=== PATIENT | female | born 1950 | race Caucasian/White ===

== ENCOUNTER → 2022-03-30 10:20 | Outpatient (CLI) | payer MEDICARE, OTHER, MEDICAID, SELFPAY ==
[2022-03-30 12:11] LABS: Potassium 4.3 mmoL/L (3.5-5.1); Sodium 139 mmol/L (136-145)
[2022-03-30 12:12] LABS: Chloride 101 mmol/L (98-107)
[2022-03-30 12:13] LABS: Alanine Aminotransferase 12 U/L (12-78); Aspartate Amino Transferase 31 U/L (14-36); Blood Urea Nitrogen 10 mg/dl (7-17); Estimated Glomerular Filt Rate 62 ml/min (>60); GFR (African American) 75 ML/MIN (>60)
[2022-03-30 12:14] LABS: Anion Gap 11.3 mEq/L (5-15); Carbon Dioxide 31 mmol/L (22.0-30.0); Glucose 94 mg/dl (74-100); HDL Cholesterol 86 mg/dl (40-60)
[2022-03-30 12:15] LABS: Albumin Level 4.2 g/dl (3.5-5.0); Albumin/Globulin Ratio 1.8 (1.1-1.8); Alkaline Phosphatase 106 U/L (38-126); Chol/HDL Ratio 2.7 (1-3.5); Cholesterol 229 mg/dl (140-200); Globulin 2.3 g/dL (1.3-3.2); Total Protein,Serum 6.5 g/dl (6.3-8.2); Triglycerides 121 mg/dl (30-150); VLDL Cholesterol 24 mg/dL (0-40)
[2022-03-30 12:25] LABS: Direct LDL Cholesterol 104.53 mg/dL (100-129)
[2022-03-30 12:45] LABS: Thyroid Stimulating Hormone 1.55 uIU/mL (0.465-4.68)
== END ==
PROVIDERS: PCP Physician Assistant; Visit Provider Family Medicine
DX: E78.5 Hyperlipidemia, unspecified (principal); F41.8 Other specified anxiety disorders
CPT/HCPCS: 36415; 80053; 80061; 84443

== ENCOUNTER 2022-06-10 12:33 | Emergency (ER) | payer MEDICARE, OTHER, MEDICAID, SELFPAY ==
--- NOTE | 2022-06-10 12:43 | ECG_ITS ---
APPROVED REPORT Exam: Resting ECG HR:65 bpm ECG Measurements Heart Rate 65 AXES NC 139 P 74 QRSd 78 QRS 36 QT 399 T 67 QTc 410 Conclusion SINUS RHYTHM POSSIBLE LEFT ATRIAL ENLARGEMENT [-0.1mV P-WAVE IN V1/V2] BORDERLINE ECG UNCONFIRMED REPORT Electronically signed by : Jorge Miguel MD 06/11/2022 20:21:07
--- NOTE | 2022-06-10 12:47 | HMH.EDGENADL ---
Discharge Plan Disposition Patient Disposition: Home, Self-Care Condition: Good Chief Complaint: Shortness of Breath/Dyspnea Prescriptions Prescriptions: No Action paroxetine HCl 20 mg tablet 20 mg PO DAILY Referrals Follow up/Referrals: Debi Allred PA [Primary Care Provider] - See instructions Activity Restrictions/Add. Instructions Additional Instructions/Restrictions: ADDITIONAL INSTRUCTIONS FOR COVID-19: Rest, drink plenty of fluids. Tylenol or Ibuprofen for fever and/or aches and pains. Monitor your symptoms. IF YOU HAVE AN EMERGENCY WARNING SIGN (INCLUDING TROUBLE BREATHING), SEEK EMERGENCY MEDICAL CARE IMMEDIATELY. COVID-19 Isolation: People with COVID-19 should isolate for 5 days. Then if they are asymptomatic (no symptoms) or their symptoms are resolving (without fever for 24 hours), follow that by 5 days of wearing a mask when around others to minimize the risk of infecting people you encounter. If you test positive for COVID-19 and never develop symptoms, day 0 is the day of your positive viral test (based on the date you were tested) and day 1 is the first full day after your positive test. If you develop symptoms after testing positive, your 5-day isolation period must start over. Day 0 is your first day of symptoms. Day 1 is the first full day after your symptoms developed. What to do: Stay in a separate room from other household members, if possible. Use a separate bathroom, if possible. Avoid contact with other members of the household and pets. Don?t share personal household items, like cups, towels, and utensils. Wear a mask when around other people if able. Clinical Impressions Clinical Impression: COVID-19 virus infection Instructions Patient Instructions: DI for COVID-19 (Suspected or Confirmed ) Discharge ED Provider: Antoine Hollis General Adult HPI General Chief complaint: Shortness of Breath/Dyspnea Stated complaint: SOA Time Seen by Provider: 06/10/22 12:52 History of Present Illness HPI narrative: The patient complains of shortness of breath. She states that she thinks she caught COVID about a week ago. Her was diagnosed as positive. She has not taken a test herself, but says that she has had flulike symptoms for a week with body aches and a mild cough. She has been short of breath predominantly with exertion. Denies chest pain. She has had some diarrhea, but no vomiting. No fever. She is a former smoker. She does not have COPD or asthma. Related Data Home Medications Medication Instructions Recorded Confirmed paroxetine HCl 20 mg tablet 20 mg PO DAILY Anxiety 06/10/22 06/10/22 Allergies Allergy/AdvReac Type Severity Reaction Status Date / Time No Known Allergies Allergy Verified 06/10/22 12:53 [facility] Disclaimer: The information contained in this section may have been updated after the patient was seen, as this information can be updated by other users. Social History Smoking Status: Former smoker alcohol intake: current current occupational status: retired Travel in the last 8 weeks: None household members: spouse housing: house ROS Obtained: Yes Systems reviewed as appropriate & no additional complaints except as documented Constitutional Constitutional: Reports body ache, Denies fever(s), Denies headache(s) and Denies weakness ENT Ears, Nose, Mouth, and Throat: Denies headache(s), Denies nasal discharge and Denies sore throat Cardiovascular Cardiovascular: Denies chest pain Respiratory Respiratory: Reports shortness of breath and Reports cough Gastrointestinal Gastrointestingal: Reports diarrhea; Denies abdominal pain, constipation or vomiting Genitourinary Female Genitourinary: Denies difficulty voiding, Denies dysuria and Denies flank pain Musculoskeletal Musculoskeletal: Denies numbness Neurologic Neurologic: Denies headache(s), Denies numbness and Denies weakness Physical Exam General Gene
[2022-06-10 12:50] VITALS: BP 136/80; PULSE 78; RESP 20; TEMP 37; O2SAT 96; BMI 17.6
--- NOTE | 2022-06-10 12:57 | XR_ITS ---
FINAL REPORT TECHNIQUE: Chest PA & Lateral CLINICAL HISTORY: shortness of breath FINDINGS: 2 views of the chest were performed. The heart size is normal. The mediastinum is within normal limits. There is left lateral pleural thickening. There is no acute cardiopulmonary process. There are no pleural effusions. There is no pneumothorax. There is rightward curvature of the thoracic spine. There is postoperative change in the left thorax. IMPRESSION: No acute cardiopulmonary process. Reviewed, Interpreted and Dictated by Rosalio Lorenzana III, MD Transcribed by Corwin Vivas Authenticated and . [facility]
[2022-06-10 13:11] LABS: Influenza A, PCR Not Detected (NotDetected); Influenza B, PCR Not Detected (NotDetected)
[2022-06-10 13:17] LABS: Basophils # 0.1 K/mm3 (0-0.2); Basophils % 1.1 % (0.1-2.0); Eosinophils # 0.1 K/mm3 (0.0-0.4); Eosinophils % 1.1 % (0.1-12.0); Hematocrit 45.3 % (37.0-47.0); Hemoglobin 14.8 g/dL (12.2-16.2); Lymphocytes # 1.3 K/mm3 (0.7-4.5); Lymphocytes % 30.3 % (10-50); Mean Corpuscular HGB Conc 32.6 g/dL (31.8-35.4); Mean Corpuscular Hemoglobin 32.9 pg (27.0-31.2); Mean Corpuscular Volume 100.9 fl (81-99); Mean Platelet Volume 8.7 fl (7.4-10.4); Monocytes # 0.3 K/mm3 (0.1-1.0); Monocytes % 5.9 % (1.7-9.3); Neutrophils # 2.6 K/mm3 (1.8-7.8); Neutrophils % 61.5 % (37.0-80.0); Platelet Count 178 K/mm3 (142-424); Red Blood Count 4.49 M/mm3 (4.20-5.40); Red Cell Distribution Width 12.5 % (11.5-17.5); White Blood Count 4.2 K/mm3 (4.8-10.8)
[2022-06-10 13:22] LABS: Alanine Aminotransferase 16 U/L (12-78); Albumin Level 4.3 g/dl (3.5-5.0); Albumin/Globulin Ratio 1.7 (1.1-1.8); Alkaline Phosphatase 112 U/L (38-126); Anion Gap 7.2 mEq/L (5-15); Aspartate Amino Transferase 36 U/L (14-36); Bilirubin,Total 0.7 mg/dl (0.2-1.3); Blood Urea Nitrogen 11 mg/dl (7-17); Calcium 9.3 mg/dl (8.4-10.2); Carbon Dioxide 31 mmol/L (22.0-30.0); Chloride 104 mmol/L (98-107); Creatinine Clearance Estimated 38 mL/min (50-200); Estimated Glomerular Filt Rate 71 ml/min (>60); GFR (African American) 86 ML/MIN (>60); Globulin 2.5 g/dL (1.3-3.2); Glucose 103 mg/dl (74-100); Potassium 4.2 mmoL/L (3.5-5.1); Sodium 138 mmol/L (136-145); Total Protein,Serum 6.8 g/dl (6.3-8.2)
[2022-06-10 13:27] LABS: D-Dimer 0.45 ug/mL (0.0-0.5)
[2022-06-10 13:33] LABS: NT Pro Brain Natriuretic Pep. 250 pg/mL (0-125)
[2022-06-10 13:34] LABS: Coronavirus 19, PCR Detected (NotDetected)
[2022-06-10 13:36] LABS: Troponin I < 0.01 ng/ml (0.00-0.034)
--- NOTE | 2022-06-10 13:39 | PC.NURSE ---
MD at bedside updating patient on test results
[2022-06-10 13:50] VITALS: BP 132/70; PULSE 74; RESP 16; TEMP 36.8; O2SAT 98
== END 2022-06-10 13:55 | disposition home or self-care (01) ==
PROVIDERS: Emergency Provider Emergency Medicine; PCP Physician Assistant
DX: U07.1 COVID-19 (principal); M79.10 Myalgia, unspecified site; R05.9 Cough, unspecified; R19.7 Diarrhea, unspecified; F41.9 Anxiety disorder, unspecified; Z79.899 Other long term (current) drug therapy; Z87.891 Personal history of nicotine dependence
CPT/HCPCS: 71046; 80053; 83880; 84484; 85025; 85378; 93005; 99284; C9803; U0003; U0005

== ENCOUNTER 2025-03-12 13:21 | Outpatient (CLI) | payer MEDICARE, OTHER, SELFPAY ==
--- OUTSIDE RECORDS SUMMARY | 2024-11-02 09:15 | XMS_ITS ---
Author Organization [facility] Address [address] [facility] [address] [place] [phone] Care Team Providers Care Dental Appliance Mechanic Name Role Phone Debi Allred Primary Care Provider Allergies Allergen (clinical drug ingredient) Drug/Non Drug [...] HCl 20 MG Take 1 tablet by [facility] once daily for 90 days Orally Once a day; Duration: 90 days Active Vital Signs Blood pressure systolic 120 mm Hg 11/03/19 25 Blood pressure diastolic 72 mm Hg 025 Heart Rate 86 /min 11/02/2024 Height 5'3 in 11/02/2024 Weight 119.4 lbs 11/02/2024 BMI 21.15 kg/m2 11/02/2024 Encounters Encounter Location Date Provider Diagnosis [facility] [place] [facility] [address] [place] [phone] 11/02/2024 Debi Allred Adult general medica l [...] HCl 20 MG Take 1 tablet by [facility] once daily for 90 days Orally Once [...] Notes * WISAM CUEVASEDOB:1950 (74 yo F)Acc No.[id number]:11/02/2024 Annual Wellness Visit Patient: KENYA STEIN Provider: KAM Key :1950 A ge:73 Y S ex:Female Date:11/02/2024 Address:[address] [place] [address] Subjective: * Chief Complaints: * 1 . [...] Temp: 98.5, BP: 120/72, HR: 86, Nurse: [facility], Ht: 5'3 , BMI:21.15. * Examination: G [...] unspecified hyperlipidemia type - E78.5? 4. B TN 21.0-21.9, adult - Z68.21 Plan: * Treatment: [...] * Images: Billing Information: * Visit Code: 48664 Office Visit, Est Pt., Level 3. Modifiers: [...] * Electronic signature of KAM Lezama on 03/12/2025 at 01:25 PM EDT Sign off status: Pending * Provider: KAM Key Date: 0 11/02/2024 Generated for Joyce ace/Carlito/eTransmitting on: 0 03/12/2025 01:25 PM EDT History and Physical Notes * HPI (History of Present Illness) Category Sub-Category Detail Notes Category Not es HPI Patient is here today for a [facility] k up with refills , a [...]
--- OUTSIDE RECORDS SUMMARY | 2024-11-07 07:45 | XMS_ITS ---
Author [facility] Address 1210 [facility] [address] [phone] Care Team Providers Care Pediatric Assistant Name Role Phone Debi Allred Primary Care Provider Results Component Value Reference Range Notes CBC Venipuncture (in house) Reviewed date:12/14/2024 09:54:47 AM Interpretation:not performed- redraw? Performing Lab: Notes/Report: not performed- redraw? P-Comprehensive Metabolic Pa edison (CMP) Reviewed date:11/15/2024 03:13:50 PM Interpretation: Normal Performing Lab: Notes/Report: Test performed by [facility], [address] , [address], [place] [address] Wojciech Mueller MD, Studio Receptionist CLIA: [id number] Sodium 143 135-145 mmol/L Potassium 3.9 3.5-5.3 [...] Performing Lab: Notes/Report: FASTING Test performed by [facility] [address] [place] [address] , [address] , [place] [address] Wojciech Mueller MD, Studio Receptionist CLIA: [id number] Cholesterol 216 <200 mg/dL Triglycerides 114 <150 [...] Normal Performing Lab: Notes/Report: Test performed by [facility] [address] [place] [address] , [address], [place] [address] Wojciech Mueller MD, Studio Receptionist CLIA: [id number] TSH reflex to FT4 2.08 0.43-5.25 mU/L REASON FOR VISIT LAB DRAW Encounters Encounter Location Date Provider Diagnosis [facility] [address] [place], [place] [phone] 11/07/2024 Debi Allred Anxiety with depress ion F41.8 and Hyperlipidemia, unspecified hyperlipidemia type E78.5 Assessments Encounter Date Diagnosis (ICD Code) Assessment Notes Treatment Notes Treatment Clinical Notes Section Notes 11/07/2024 Anxiety with depression (ICD-10 - F41.8) 11/07/2024 Hyperlipidemia, unspecified hyperlipidemia type (ICD-10 - E78.5) Plan Of Treatment No Information Progress Notes * WISAM CUEVASEDOB:1950 (74 yo F)Acc No.[id number]:11/07/2024 Patient: KENYA STEIN Provider: KAM Key :1950 A ge:73 Y S ex:Female Date:11/07/2024 Address:[address] [place] [address] Subjective: * Chief Complaints: * 1 . [...] to FT4 2.08 0.43-5.25 - mU/L * Rea Tavarez 11/15/2024 03: 13:41 PM > See [...] 0 11/07/2024 Generated for Bryanti ng/Facheg/eTransmitting on: 0 03/12/2025 01:25 PM EDT
--- OUTSIDE RECORDS SUMMARY | 2025-02-28 10:00 | XMS_ITS ---
Author Organization [place] Address 1210 [facility] [address] [place] [phone] Care Team Providers Care Plasterer Helper Name Role Phone Debi Allred Primary Care Provider Allergies Allergen (clinical drug ingredient) Drug/Non Drug Allergy documented on EMR Reaction Allergy Type Onset Date Status Shellfish (FN) Shellfish-derived Products stomach upset Drug Allergy Active REASON FOR VISIT check up Medications Medication SIG (Take, Route, Fr equency, Duration) Notes Start Date End Date Status PARoxetine HCl 20 MG Take 1 tablet by [facility] once daily for 90 days Orally Once a day; Duration: 90 days Active Vital Signs Blood pressure systolic 118 mm Hg 02/29/20 25 Blood pressure diastolic 70 mm Hg 025 Heart Rate 74 /min 02/28/2025 Height 5'3 in 02/28/2025 Weight 117.6 lbs 02/28/2025 BMI 20.83 kg/m2 02/28/2025 Encounters Encounter Location Date Provider Diagnosis [facility] [facility] [address] [place] [phone] 02/28/2025 Debi Allred Mass of axillary flavio [...] adult (ICD-10 - Z68.20) Plan Of Treatment Pending Test Test Name Order Date CT Scan : Chest with IV contrast 025 Next Appt Details Follow Up: via phone to repo rt test results, Reason: Progress Notes * WISAM CUEVASEDOB:1950 (74 yo F)Acc No.[id number]:02/28/2025 Progress Notes Patient: KENYA STEIN Provider: KAM Key :1950 A ge:74 Y S ex:Female Date:02/28/2025 Address:[address] [place] [address] Subjective: * Chief Complaints: * 1 . [...] with depression - F41.8 3 . B [place] 20.0-20.9, adult - Z68.20 Plan: * Treatment: [...] to report test results * Images: Drawin02/28/25 [facility] Billing Information: * Visit Code: 18706 Office Visit, Est Pt., Level 3. * Procedure Codes: G2211 Complex e/m visit add on. 1036F TOBACCO NON-USER. G8420 BMI<30 AND >=22 CALC & DOCU. G8783 BP SCR PRFRM RCMDD DEFIND SCR INTVL. G8752 MOST RECENT SYSTOLIC BP < 140MM HG. G8754 MOST RECENT DIASTOLIC BP < 90MM HG. * Electronic signature of KAM Lezama on 03/12/2025 at 01:26 PM EDT Sign off status: Pending * Provider: KAM Key Date: 02/28/2025 Generated for Joyce ace/Carlito/Jerryitting on: 0 03/12/2025 01:26 PM EDT History and Physical Notes * [...]
--- NOTE | 2025-03-12 13:23 | CT_ITS ---
FINAL REPORT TECHNIQUE: Thin section axial images were obtained from the thoracic inlet through the upper abdomen after intravenous contrast injection. Reconstruction images were obtained from the axial data. Exam was performed using dose reduction technique. CLINICAL HISTORY: MASS OF AXILLARY TAIL LT BREAST FINDINGS: Surgical clips are seen in the left axilla, presumably from axillary lymph node dissection. There are surgical changes to the left breast. Soft tissue mass is identified measuring 30 mm within the lateral left breast, current breast cancer is a concern. There is a mildly enlarged right axillary lymph node measuring 13 mm. There is no mediastinal or hilar lymphadenopathy. There is no pleural or pericardial effusion. There is a large hiatal hernia. Changes of emphysema is noted. There is a subpleural, somewhat spiculated opacity in the left upper lobe slightly nodular deep to the breast abnormality measuring 25 x 11 mm. While this could be related to radiation to the left breast, metastatic disease is not excluded. Limited evaluation of the upper abdomen is without acute abnormality. There are several thoracic compression deformities which are age-indeterminate including T2, T3, T8, and T9. There is also an inferior endplate L1 compression fracture. IMPRESSION: Mass in the lower left breast with other findings suggestive of prior surgery from left axillary lymph node dissection, recurrent or residual neoplasm a concern. Indeterminant right axillary lymph node. PET/CT is recommended if breast cancer is confirmed. Subpleural spiculated opacity in the left upper lobe which could be related to radiation or neoplasm. This is also better evaluated with PET scan. Reviewed, Interpreted and Dictated by Elva Bronson MD Transcribed by Paulette Ying Authenticated and [facility]
--- OUTSIDE RECORDS SUMMARY | 2025-03-12 13:26 | XMS_ITS | Patient Health Record ---
Author Organization [facility] Address [address] [facility] 36 [facility] [address] [place] [phone] Care Team Providers Care Esol Teacher Assistant Name Role Phone Debi Allred Primary Care Provider Allergies Allergen (clinical drug ingredient) Drug/Non Drug Allergy documented on EMR Reaction Allergy Type Onset Date Status Shellfish (FN) Shellfish-derived Products stomach upset Drug Allergy Active Results Component Value Reference Range Notes CBC Venipuncture (in house) Reviewed date:12/14/2024 09:54:47 AM Interpretation:not performed- redraw? Performing Lab: Notes/Report: not performed- redraw? P-Comprehensive Metabolic Pa edison (CMP) Reviewed date:11/15/2024 03:13:50 PM Interpretation: Normal Performing Lab: Notes/Report: Test performed by [facility], [facility] , [address], [place] [address] Wojciech Mueller MD, Water Resource Engineer CLIA: [id number] Sodium 143 135-145 mmol/L Potassium 3.9 3.5-5.3 [...] Performing Lab: Notes/Report: FASTING Test performed by [facility], [address] , [facility], [place] [address] Wojciech Mueller MD, Water Resource Engineer CLIA: [id number] Cholesterol 216 <200 mg/dL Triglycerides 114 <150 [...] Normal Performing Lab: Notes/Report: Test performed by [facility], [facility] [address] [place] [address] , [address], [place] [address] Wojciech Mueller MD, Water Resource Engineer CLIA: [id number] TSH reflex to FT4 2.08 0.43-5.25 mU/L Reason For Referral No Information Medications Medication SIG (Take, Route, Fr equency, Duration) Notes Start Date End Date Status PARoxetine HCl 20 MG Take 1 tablet by [facility] once daily for 90 days Orally Once a day; Duration: 90 days Active Immunizations Vaccine Route Administration Date Status Comme nts COVID 19 Eloisa IM Intramuscular 08/29/2020 Administered Problems Problem Type SNOMED Code ICD Code Onset Dates Problem Status W/U Status Risk Notes Problem Hyperlipidaemia (28419061) Hyperlipidemia, unspecified hyperlipidemia type (E78.5) Active confirmed Problem Anxiety depression (065401170) Anxiety with depression (F41.8) Active confirmed Vital Signs Heart Rate 74 /min 02/28/2025 Blood pressure diastolic 70 mm Hg 02/28/2025 Height 5'3 in 02/28/2025 Blood pressure systolic 118 mm Hg 02/28/2025 Weight 117.6 lbs 02/28/2025 BMI 20.83 kg/m2 02/28/2025 Encounters Encounter Location Date Provider Diagnosis [facility] [address] [id number] 11/02/2024 Debi Allred Adult general medica l examination Z00.00 ; Anxiety with depression F41.8 ; Hyperlipidemia, unspecified hyperlipidemia type E78.5 and BMI 21.0-21.9, adult Z68.21 [facility] [address] [id number] 11/07/2024 Debi Allred Anxiety with depress ion F41.8 and Hyperlipidemia, unspecified hyperlipidemia type E78.5 [place] [address] [id number] 02/28/2025 Debi Allred Mass of axillary flavio l of left breast N63.32 ; Anxiety with depression F41.8 and BMI 20.0-20.9, adult Z68.20 [facility] [address] [place] [id number] 03/05/2025 Debi Allred [facility] [address] [place] [id number] 06/07/2024 Debi Allred [facility] [address] [place] [id number] 11/15/2024 Debi Allred Assessments Encounter Date Diagnosis (ICD Code) Assessment [...] 11/02/2024 Anxiety with depression (ICD-10 - F41.8) 11/07/2024 Hyperlipidemia, unspecified hyperlipidemia type (ICD-10 - E78.5) 11/07/2024 Anxiety with depression (ICD-10 - F41.8) 02/28/2025 Anxiety with depression (ICD-10 - F41.8) 02/28/2025 Mass of axillary tail of left breast (ICD-10 - N63.32) 02/28/2025 BMI 20.0-20.9, adult (ICD-10 - Z68.20) 11/02/2024 Hyperlipidemia, unspecified hyperlipidemia type (ICD-10 - E78.5) Patient will come back tomorrow fasting for labs CBC, CMP, Lipid, TSH with refled to Free T4. 11/02/2024 BMI 21.0-21.9, adult (ICD-10 - Z68.21) Plan Of Treatment Pending Test Test Name Order Date CT Scan : Chest with IV contrast 025 Insurance Providers Payer Name Payer Address Payer Phone Subscriber Number Group Number Insured Name Patient Relationship to Insured Coverage Start Date Coverage End Date MEDICARE PART B [address] [address] [place] [address] [phone] [id number] KENYA CUEVAS Self - patient is the insured [facility] MEDICARE SUPPLEMENT [address] [address] [place], [place] [phone] [id number] KENYA CUEVAS Self - patient is the insured Medical (General) History Medical History History ICD Code Breast Cancer Anixety Surgical History Surgery Date(Month/Year) Lumpectomy left breast with lymph node r emoval 1990
[2025-03-12 13:45] LABS: Blood Urea Nitrogen 9 mg/dl (7-17); Creatinine,Serum 0.90 mg/dl (0.52-1.04); Estimated Glomerular Filt Rate 62 ml/min (>60); GFR (African American) 74 ML/MIN (>60)
[2025-03-12] MEDS: SODIUM CHLORIDE 0.9% 10ML SYR (RAD ONLY) 10 ML IV (14:13)
[2025-03-12] MEDS: IOPAMIDOL-370 (76%);100ML BOTTLE 75 ML IV (14:13)
== END 2025-03-12 23:59 | disposition home or self-care (01) ==
LOC: RAD 13:22
PROVIDERS: PCP Physician Assistant; Visit Provider Physician Assistant
DX: N63.20 Unspecified lump in the left breast, unspecified quadrant (principal); N63.32 Unspecified lump in axillary tail of the left breast; R91.8 Other nonspecific abnormal finding of lung field; R93.89 Abnormal findings on diagnostic imaging of other specified body structures
CPT/HCPCS: 36415; 71260; 82565; 84520; Q9967

== ENCOUNTER 2025-04-16 14:38 | Outpatient (CLI) | payer MEDICARE, OTHER, SELFPAY ==
--- OUTSIDE RECORDS SUMMARY | 2024-11-02 09:15 | XMS_ITS ---
Author Organization [facility] Address [address] [facility] [address] [place] [phone] Care Team Providers Care Harvester Operator Name Role Phone Debi Allred Primary Care Provider [phone] Allergies Allergen (clinical drug ingredient) Drug/Non Drug [...] MG Take 1 tablet by [facility] once daily for 90 days Orally Once a day; Duration: 90 days Active Vital Signs Blood pressure systolic 120 mm Hg 11/03/19 25 Blood pressure diastolic 72 mm Hg 025 Heart Rate 86 /min 11/02/2024 Height 5'3 in 11/02/2024 Weight 119.4 lbs 11/02/2024 BMI 21.15 kg/m2 11/02/2024 Encounters Encounter Location Date Provider Diagnosis [facility] [place] [facility] [address] [place] [phone] 11/02/2024 Debi Allred Adult general medica l [...] MG Take 1 tablet by [facility] once daily for 90 days Orally Once [...] Notes * WISAM CUEVASEDOB:1950 (74 yo F)Acc No.[id number]:11/02/2024 Annual Wellness Visit Patient: KENYA STEIN Provider: KAM Key :1950 A ge:73 Y S ex:Female Date:11/02/2024 Address:[address] [place] [address] Subjective: * Chief Complaints: * 1 . [...] Temp: 98.5, BP: 120/72, HR: 86, Nurse: [facility], Ht: 5'3 , BMI:21.15. * Examination: [...] * Images: Billing Information: * Visit Code: 77183 Office Visit, Est Pt., Level 3. Modifiers: [...] * Electronic signature of KAM Lezama on 04/16/2025 at 03:34 PM EDT Sign off status: Pending * Provider: KAM Key Date: 0 11/02/2024 Generated for Joyce ace/Carlito/eTransmitting on: 1 03:34 PM EDT History and Physical Notes * HPI (History of Present Illness) Category Sub-Category Detail Notes Category Not es HPI Patient is here today for a [facility] k up with refills , a Medicare [...]
--- OUTSIDE RECORDS SUMMARY | 2024-11-07 07:45 | XMS_ITS ---
Author Organization [facility] Address 1210 [facility] [address] [phone] Care Team Providers Care Oil Pipeline Dispatcher Name Role Phone Debi Allred Primary Care Provider [phone] Results Component Value Reference Range Notes CBC Venipuncture (in house) Reviewed date:12/14/2024 09:54:47 AM Interpretation:not performed- redraw? Performing Lab: Notes/Report: not performed- redraw? P-Comprehensive Metabolic Pa edison (CMP) Reviewed date:11/15/2024 03:13:50 PM Interpretation: Normal Performing Lab: Notes/Report: Test performed by [facility], [address] , [address], [place] [address] Wojciech Mueller MD, Driver Helper CLIA: [id number] Sodium 143 135-145 mmol/L Potassium 3.9 3.5-5.3 [...] Performing Lab: Notes/Report: FASTING Test performed by [facility] [address] [place] [address] , [address] , [place] [address] Wojciech Mueller MD, Driver Helper CLIA: [id number] Cholesterol 216 <200 mg/dL Triglycerides 114 <150 [...] Normal Performing Lab: Notes/Report: Test performed by [facility] [address] [place] [address] , [address], [place] [address] Wojciech Mueller MD, Driver Helper CLIA: [id number] TSH reflex to FT4 2.08 0.43-5.25 mU/L REASON FOR VISIT LAB DRAW Encounters Encounter Location Date Provider Diagnosis [facility] [address] [place], [place] [id number] 11/07/2024 Debi Allred Anxiety with depress ion F41.8 and Hyperlipidemia, unspecified hyperlipidemia type E78.5 Assessments Encounter Date Diagnosis (ICD Code) Assessment Notes Treatment Notes Treatment Clinical Notes Section Notes 11/07/2024 Anxiety with depression (ICD-10 - F41.8) 11/07/2024 Hyperlipidemia, unspecified hyperlipidemia type (ICD-10 - E78.5) Plan Of Treatment No Information Progress Notes * WISAM CUEVASEDOB:1950 (74 yo F)Acc No.[id number]:11/07/2024 Patient: KENYA STEIN Provider: KAM Key :1950 A ge:73 Y S ex:Female Date:11/07/2024 Address:[address] [place] [address] Subjective: * Chief Complaints: * 1 . [...] sure what happened with could not find Debi Anderson 12/14/2024 09:54:42 AM EDT >noted * Images: Billing Information: * Visit Code: * Procedure Codes: * Electronic signature of KAM Lezama on 04/16/2025 at 03:34 PM EDT Sign off status: Pending * Provider: KAM Key Date: 0 11/07/2024 Generated for Bryanti ng/Facheg/eTransmitting on: 1 03:34 PM EDT
--- OUTSIDE RECORDS SUMMARY | 2025-02-28 10:00 | XMS_ITS ---
Author Organization [place] Address [address] [facility] [address] [place] [id number] Care Team Providers Care Piercing Machine Operator Name Role Phone Debi Allred Primary [...] HCl 20 MG Take 1 tablet by [facility] once daily for 90 days Orally Once a day; Duration: 90 days Active Vital Signs Blood pressure systolic 118 mm Hg 02/29/20 25 Blood pressure diastolic 70 mm Hg 025 Heart Rate 74 /min 02/28/2025 Height 5'3 in 02/28/2025 Weight 117.6 lbs 02/28/2025 BMI 20.83 kg/m2 02/28/2025 Encounters Encounter Location Date Provider Diagnosis [facility] [address] [place] [phone] 02/28/2025 Debi Allred Mass of axillary flavio [...] Notes * WISAM CUEVASEDOB:1950 (74 yo F)Acc No.[id number]:02/28/2025 Progress Notes Patient: KENYA STEIN Provider: KAM Key :1950 A ge:74 Y S ex:Female Date:02/28/2025 Address:[address] [place] [address] Subjective: * Chief Complaints: * 1 . [...] with depression - F41.8 3 . B [place] 20.0-20.9, adult - Z68.20 Plan: * Treatment: [...] to report test results * Images: Drawin02/28/25 [facility] Billing Information: * Visit Code: 18157 Office Visit, Est Pt., Level 3. * Procedure Codes: G2211 Complex e/m visit add on. 1036F TOBACCO NON-USER. G8420 BMI<30 AND >=22 CALC & DOCU. G8783 BP SCR PRFRM RCMDD DEFIND SCR INTVL. G8752 MOST RECENT SYSTOLIC BP < 140MM HG. G8754 MOST RECENT DIASTOLIC BP < 90MM HG. * Electronic signature of KAM Lezama on 04/16/2025 at 03:35 PM EDT Sign off status: Pending * Provider: KAM Key Date: 0 02/28/2025 Generated for Joyce ace/Carlito/eTransmitting on: 1 03:35 PM EDT History and Physical Notes * [...]
--- OUTSIDE RECORDS SUMMARY | 2025-03-29 07:40 | XMS_ITS ---
Author Organization Joelle Address 1210 [facility] 36 [facility] [address] [place], [place] [id number] Care Team Providers Care Cash Accountant Name Role Phone Debi Allred Primary Care Provider REASON FOR VISIT order clarification Encounters Encounter Location Date Provider Diagnosis [facility] 36 [facility] [address] [place] [id number] 03/29/[address] CT R9 3.89 and Mass of left breast, unspecified quadrant N63.20 Assessments Encounter Date Diagnosis (ICD Code) Assessment Notes Treatment Notes Treatment Clinical Notes Section Notes 03/29/[address] (ICD-10 - R93.89) 03/29/2025 Mass of left breast, unspecified quadrant (ICD-10 - N63.20) Plan Of Treatment Pending Test Test Name Order Date Ultrasound : Breast, left 03/29/2025 Mammogram : Diagnostic Left Breast 03/29 Progress Notes * WISAM CUEVASEDOB:1950 (74 yo F)Acc No.[id number]:03/29/2025 Patient: KENYA STEIN :1950 A ge:74 Y S ex:Female Address:[address] [place] [address], [id number] Subjective: * Chief Complaints: * O rder clarification * Medical History: * Surgical History: * Hospitalization/Major Diagno stic Procedure: * Medications: Objective: * Vitals: * Physical Examination: Assessment: * Assessment: 1. A bnormal chest CT - R93.89 (Primary) 2 . M ass of left breast, unspecified quadrant - N63.20 Plan: * Treatment: 2. M ass of left breast, unspecified quadrant I maging: Ultrasound : Breast, left I maging: Mammogram : Diagnostic Left Breast * Procedure Codes: * true * Date: Generated for Joyce ace/Carlito/Jerryitting on: 03:34 PM EDT
--- NOTE | 2025-04-16 14:41 | US_ITS ---
PROCEDURE INFORMATION: Exam: US Left Breast, Complete MG Left Diagnostic Breast Tomosynthesis Exam date and time: 04/16/2025 2:47 PM Age: 74 years old Clinical indication: History of left breast pain and lump. Personal history of left breast cancer, status post lumpectomy and radiation in the early 90s. TECHNIQUE: Imaging protocol: Complete ultrasound of all four quadrants of the left breast and the retroareolar regions, including ultrasound of the axilla when performed. Left Diagnostic tomosynthesis and 2D mammography including computer-aided detection (CAD) when performed. Unilateral or bilateral exam. COMPARISON: Mammogram 04/09/2015, 07/30/2003, and 07/25/2002 FINDINGS: MAMMOGRAPHY: Breast mammogram findings: Neither the location of the palpable lump nor pain are annotated with a skin marker on the mammogram. Breast composition: There are scattered areas of fibroglandular density. Mass: New oval 2.8 cm mass/circumscribed asymmetry in the upper left breast posterior 3rd, about 9-13 cm from the nipple, MLO view only. Architectural distortion: Similar postsurgical architectural distortion and deformity status post lumpectomy. Calcifications: No suspicious calcifications. Asymmetric density: None. Skin thickening: None. Axillary adenopathy: None. ULTRASOUND: Breast ultrasound findings: Ultrasound images of left breast including the retroareolar region, all 4 quadrants and the axilla demonstrates at 2 o'clock 8 cm from the nipple, corresponding to the palpable mass as indicated in the technologist notes, heterogeneous slightly lobulated very hyperemic mass, which is superficial, abutting the overlying echogenic skin layer, measuring 2.0 x 2.6 x 2.3 cm which appears to correspond to the mammographic mass. Postlumpectomy scarring noted at 11 o'clock. No axillary adenopathy demonstrated. IMPRESSION: Suspicious solid hyperemic 2.6 cm mass on the left at 2 o'clock 8 cm from the nipple, corresponding to the palpable mass as indicated in the technologists sonography notes, demonstrated on mammography as well. This abuts the overlying skin layer on sonography. Recommend ultrasound-guided biopsy correlation to ensure that sonographically placed clip corresponds to mammographic mass. Recommend adding right sonography as well, last submitted bilateral mammograms from 2014. In women diagnosed with breast cancer before age 50 or with personal histories of breast cancer and dense breasts, the [employer] recommends annual supplemental MRI in addition to yearly mammography. Alternative supplemental studies may include breast sonography or contrast enhanced mammography. ASSESSMENT: BI-RADS Category 5: Highly suggestive of malignancy.
--- OUTSIDE RECORDS SUMMARY | 2025-04-16 15:35 | XMS_ITS ---
Author Organization Unknown TREATMENT PLAN [facility] Start Date Provider Encounter for Check-up [id number] [facility]
--- OUTSIDE RECORDS SUMMARY | 2025-04-16 15:35 | XMS_ITS | Patient Health Record ---
Author Organization [facility]-Kateryna Address 1210 [facility] 36 [facility] [address] [place] [phone] Care Team Providers Care Research Professor Of Biostatistics Name Role Phone Debi Allred Primary Care [...] Normal Performing Lab: Notes/Report: Test performed by [facility], [facility] , [address], [place] [address] Wojciech Mueller MD, Reconcilement Clerk CLIA: [id number] Sodium 143 135-145 mmol/L Potassium 3.9 3.5-5.3 [...] Performing Lab: Notes/Report: FASTING Test performed by [employer], [address] , [facility], [place] [address] Wojciech Mueller MD, Reconcilement Clerk CLIA: [id number] Cholesterol 216 <200 mg/dL Triglycerides 114 <150 [...] Normal Performing Lab: Notes/Report: Test performed by [facility] [address] [place] [address] , [address], [place] [address] Wojciech Mueller MD, Reconcilement Clerk CLIA: [id number] TSH reflex to FT4 2.08 0.43-5.25 mU/L CT Scan : Chest with IV cont rast Reviewed date:03/16/2025 11:30:42 AM Interpretation: Performing Lab: Notes/Report: H-BUN/CREAT Reviewed date:03/16/2025 11:30:43 AM Interpretation:Normal Performing Lab: Notes/Report: BUN 9 7-17 mg/dl CREATT 0.90 0.52-1.04 mg/dl GFRAA 74 >60 ML/MIN EGFR 62 >60 ml/min Ultrasound : Breast, left Reviewed date:03/29/2025 11:59:23 AM Interpretation: Performing Lab: Notes/Report: Reason For Referral No Information Medications Medication SIG (Take, Route, Fr equency, Duration) Notes Start Date End Date Status PARoxetine HCl 20 MG Take 1 tablet by [facility] once daily for 90 days Orally Once a day; Duration: 90 days Active Immunizations Vaccine Route Administration Date Status Comme nts COVID 19 Eloisa IM Intramuscular 08/29/2020 Administered Problems Problem Type SNOMED Code ICD Code Onset Dates Problem Status W/U Status Risk Notes Problem Hyperlipidaemia (97197131) Hyperlipidemia, unspecified hyperlipidemia type (E78.5) Active confirmed Problem Anxiety depression (853135871) Anxiety with depression (F41.8) Active confirmed Problem Radiology result abnormal (305700166) Abnormal chest CT (R93.89) Active confirmed Vital Signs Heart Rate 74 /min 02/28/2025 Blood pressure diastolic 70 mm Hg 02/28/2025 Height 5'3 in 02/28/2025 Blood pressure systolic 118 mm Hg 02/28/2025 Weight 117.6 lbs 02/28/2025 BMI 20.83 kg/m2 02/28/2025 Encounters Encounter Location Date Provider Diagnosis [facility] [address] [place], [place] [id number] 11/02/2024 Debi Allred Adult general medica l examination Z00.00 ; Anxiety with depression F41.8 ; Hyperlipidemia, unspecified hyperlipidemia type E78.5 and BMI 21.0-21.9, adult Z68.21 [facility] [address] [place], [place] [id number] 11/07/2024 Debi Brigida Anxiety with depress ion F41.8 and Hyperlipidemia, unspecified hyperlipidemia type E78.5 [facility] [address] [place], [place] [id number] 02/28/2025 Debi Brigdia Mass of axillary flavio l of left breast N63.32 ; Anxiety with depression F41.8 and BMI 20.0-20.9, adult Z68.20 [facility] [address] [place], [place] [id number] 06/07/2024 Debi Crowdy [facility] [address] [facility] [address] [place], [place] [id number] 11/15/2024 Debi Crowdy [facility] [address] [facility] [address] [place], [place] [id number] 03/05/2025 Debi Crowdy [facility] [address] [facility] [address] [place] [id number] 03/16/2025 Debi Crowdy [facility] [address] [facility] [address] [place], [place] [id number] 03/29/2025 Debi Brigida Abnormal chest CT R9 3.89 and Mass of left breast, unspecified quadrant N63.20 Assessments Encounter Date Diagnosis (ICD Code) Assessment Notes Treatment Notes Treatment Clinical Notes Section Notes 11/07/2024 Hyperlipidemia, unspecified hyperlipidemia type (ICD-10 - E78.5) 11/07/2024 Anxiety with depression (ICD-10 - F41.8) 02/28/2025 Anxiety with depression (ICD-10 - F41.8) 02/28/2025 Mass of axillary tail of left breast (ICD-10 - N63.32) 03/29/[address] (ICD-10 - R93.89) 03/29/2025 Mass of left breast, unspecified quadrant (ICD-10 - N63.20) 11/02/2024 Adult general medical examination (ICD-10 - Z00.00) Patient instructed to return to office Annually for Annual Wellness Visits to include annual screenings of Pain assessment, Functional Ability assessment, Cognitive Ability assessment, Fall Risk assessment, Depression screening and Bladder control screening. She declines preventative screening. 11/02/2024 Anxiety with depression (ICD-10 - F41.8) 02/28/2025 [...] 03/29/2025 Mammogram : Diagnostic Left Breast 03/29 Insurance Providers Payer Name Payer Address Payer Phone Subscriber Number Group Number Insured Name Patient Relationship to Insured Coverage Start Date Coverage End Date MEDICARE PART B [address] [address] [place] [address] [id number] KENYA CUEVAS Self - patient is the insured [facility] MEDICARE SUPPLEMENT [address] [address] [place], [place] [id number] KENYA CUEVAS Self - patient is the insured Medical (General) History Medical History History ICD Code Breast Cancer Anixety Surgical History Surgery Date(Month/Year) Lumpectomy left breast with lymph node r emoval 1989
== END 2025-04-16 23:59 | disposition home or self-care (01) ==
LOC: RAD 14:39
PROVIDERS: PCP Physician Assistant; Visit Provider Physician Assistant
DX: N63.21 Unspecified lump in the left breast, upper outer quadrant (principal); N64.4 Mastodynia; R92.322 Mammographic fibroglandular density, left breast; R92.8 Other abnormal and inconclusive findings on diagnostic imaging of breast; R93.89 Abnormal findings on diagnostic imaging of other specified body structures; Z85.3 Personal history of malignant neoplasm of breast; Z98.890 Other specified postprocedural states
CPT/HCPCS: 76641; 77061; 77065; G0279

== ENCOUNTER 2025-04-27 09:33 | Outpatient (CLI) | payer MEDICARE, OTHER, SELFPAY ==
--- NOTE | 2025-04-27 09:36 | US_ITS ---
FINAL REPORT CLINICAL HISTORY: LEFT BREAST MASS left breast FINDINGS: ULTRASOUND-GUIDED LEFT BREAST CORE BIOPSY TECHNIQUE: Limited images were obtained to localize region of interest. The left breast was prepped in a routine sterile fashion and locally anesthetized with 1% lidocaine. Standard written informed consent was obtained. Dominant hypoechoic mass was localized in the left upper outer quadrant. The biopsy needle was positioned within the outer periphery of the lesion. A total of 3 passes were made with a 18 gauge core biopsy needle. A biopsy marker clip was deployed in satisfactory position. Postbiopsy mammogram showed postbiopsy changes with clip in satisfactory position. Procedure was well tolerated . CONCLUSION: 1. Technically successful ultrasound guided core biopsy of left breast lesion as above. 2. Biopsy marker clip deployed Authenticated and ERN
--- NOTE | 2025-04-27 09:37 | MM_ITS ---
FINAL REPORT CLINICAL HISTORY: VERIFY CLIP PLACEMENT FINDINGS: MAMMOGRAM LEFT TECHNIQUE: MLO digital 2-D views only COMPARISON:04/16/2025 DENSITY: There are scattered areas of fibroglandular density FINDINGS: Post biopsy marker clip is noted to be in satisfactory position within the mass. Postbiopsy changes are noted. IMPRESSION: Biopsy marker clip in good position ASSESSMENT: A post-procedure mammogram is used to confirm the position and deployment of a breast tissue marker after a biopsy RECOMMENDATION: Pending histopathology evaluation Authenticated and ERN
== END 2025-04-27 23:59 | disposition home or self-care (01) ==
LOC: RAD 09:34
PROVIDERS: PCP Physician Assistant; Visit Provider Physician Assistant
DX: N63.32 Unspecified lump in axillary tail of the left breast (principal); R39.89 Other symptoms and signs involving the genitourinary system; R92.8 Other abnormal and inconclusive findings on diagnostic imaging of breast
CPT/HCPCS: 19083; 77065; A4648

== ENCOUNTER 2025-06-05 07:19 | Outpatient (CLI) | payer MEDICARE, OTHER, SELFPAY ==
--- OUTSIDE RECORDS SUMMARY | 2024-11-02 08:15 | XMS_ITS ---
Author Organization [facility] Address [address] [facility] [address] [place] [id number] Care Team Providers Care Rehabilitation Worker Name Role Phone Debi Allred Primary Care Provider [phone] Allergies Allergen (clinical drug ingredient) Drug/Non Drug Allergy documented on EMR Reaction Allergy Type Onset Date Status Shellfish (FN) Shellfish-derived Products stomach upset Drug Allergy Active REASON FOR VISIT checkup with refills and Annual Wellness Visit Medications Medication SIG (Take, Route, Frequency, Duration) Notes Start Date End Date Status Paxil 20 MG 1 tab(s) orally once a day; Duration: 90 days Not-Taking PARoxetine HCl 20 MG Take 1 tablet by [facility] once daily for 90 days Orally Once a day; Duration: 90 days Active Vital Signs Weight 119.4 lbs 11/02/2024 Blood pressure systolic 120 mm Hg 11/03/19 25 Blood pressure diastolic 72 mm Hg 025 Heart Rate 86 /min 11/02/2024 Height 5'3 in 11/02/2024 BMI 21.15 kg/m2 11/02/2024 Encounters Encounter Location Date Provider Diagnosis [facility] [place] [facility] [address] [place] [phone] 11/02/2024 Debi Allred Adult general medica l examination Z00.00 ; Anxiety with depression F41.8 ; Hyperlipidemia, unspecified hyperlipidemia type E78.5 and BMI 21.0-21.9, adult Z68.21 Assessments Encounter Date Diagnosis (ICD Code) Assessment Notes Treatment Notes Treatment Clinical Notes Section Notes 11/02/2024 Adult general medical examination (ICD-10 - Z00.00) Patient instructed to return to office Annually for Annual Wellness Visits to include annual screenings of Pain assessment, Functional Ability assessment, Cognitive Ability assessment, Fall Risk assessment, Depression screening and Bladder control screening. She declines preventative screening. 11/02/2024 Anxiety with depression (ICD-10 - F41.8) 11/02/2024 Hyperlipidemia, unspecified hyperlipidemia type (ICD-10 - E78.5) Patient will come back tomorrow fasting for labs CBC, CMP, Lipid, TSH with refled to Free T4. 11/02/2024 BMI 21.0-21.9, adult (ICD-10 - Z68.21) Plan Of Treatment Medication Medication Name Sig Start Date Stop Date Notes PARoxetine HCl 20 MG Take 1 tablet by [facility] once daily for 90 days Orally Once a day; Duration: 90 days Treatment Notes Assessment Notes Adult general medical examination Patient instructed to return to office Annually for Annual Wellness Visits to include annual screenings of Pain assessment, Functional Ability assessment, Cognitive Ability assessment, Fall Risk assessment, Depression screening and Bladder control screening. She declines preventative screening. Hyperlipidemia, unspecified hyperlipidemia type Patient will come back tomorrow fasting for labs CBC, CMP, Lipid, TSH with refled to Free T4. Next Appt Details Follow Up: As directed by MD , Reason: Progress Notes * WISAM CUEVASEDOB:1950 (74 yo F)Acc No.[id number]:11/02/2024 Annual Wellness Visit Patient: KENYA STEIN Provider: KAM Key :1950 A ge:73 Y S ex:Female Date:11/02/2024 Address:[address] [place] [address] Subjective: * Chief Complaints: * 1 . checkup with refills and Annual Wellness Visit. * HPI: H PI: Patient is here today for a check up with refills , a Medicare Annual Wellness Visit. Pt sts she is doing well and has no concerns at this time. * ROS: O PTHALMOLOGY: Negative for d enies vision issues. * Medical History: B reast Cancer, Anixety. * Surgical History: L umpectomy 1989. * Family History: F ather: 68 yrs. M other: 83 yrs. 3 sister(s) - healthy. 1 son(s) , 1 daughter(s) - healthy. . * Social History: C URRENT TOBACCO USE: No . C affeine: yes, frequency:. Alcohol: No. * Medications: T shannag PARoxetine HCl 20 MG Tablet Take 1 tablet by mouth once daily for 90 days , Not-Taking Paxil 20 MG Tablet 1 tab(s) orally once a day , Medication List reviewed and reconciled with the patient * Allergies: S hellfish-derived Products: stomach upset. Objective: * Vitals: W t: 119.4, Temp: 98.5, BP: 120/72, HR: 86, Nurse: [facility], Ht: 5'3 , BMI:21.15. * Examination: G eneral Examination: General Appearance: N AD. H EENT: u nremarkable.?Oral cavity: n o lesions, mucosa moist and WNL, no erythema. N arely: s upple, no lymphadenopathy. C hest: n ormal shape and expansion. H eart: R SR. L ungs: c lear to auscultation. A bdomen: b owel sounds present , soft and nontender , no organomegaly or masses , no guarding or rigidity. N eurologic Exam: I ntact, gait normal. S kin: n ormal, no rash. P eripheral pulses: n ormal (2+) bilaterally. E xtremities: n o leg edema. * Physical Examination: G ENERAL: Pain Assessment: P ain level:0 , on a scale of 0-10 (with 10 being extreme pain). F unctional Status Assessment: P atient response to question of how often physical health interferes with daily activities:almost never . Able to perform ADLs-including meal preparation, grocery shopping, housework, laundry, taking medications or handling finances. Cognitive Status: alert and oriented. Ambulation Status: Fully ambulatory . F all Risk Assessment: I ndependant in ambulation, adequate lighting in home. Patient has NOT fallen or had trouble walking within the past 12 months. D epression Screening: D enies depressed mood or anxiety. Describes emotional health as: did not answer. B ladder Control Screening: D enies problems. Assessment: * Assessment: 1. A dult general medical examination - Z00.00 (Primary) 2 . A nxiety with depression - F41.8 3 . H yperlipidemia, unspecified hyperlipidemia type - E78.5? 4. B NJ 21.0-21.9, adult - Z68.21 Plan: * Treatment: 2. A nxiety with depression Refill PARoxetine HCl Tablet, 20 MG, Take 1 tablet by mouth once daily for 90 days, Orally, Once a day, 90 days, 90, Refills 3. 3. H yperlipidemia, unspecified hyperlipidemia type Notes: Patient will come back tomorrow fasting for labs CBC, CMP, Lipid, TSH with refled to Free T4. * Procedure Codes: G 0439 ANNUAL WELLNESS VST; PPS SUBSQT VST, G2211 Complex e/m visit add on, 1090F PRES/ABSN URINE INCON ASSESS, 3288F FALL RISK ASSESSMENT DOCD, 1170F FXNL STATUS ASSESSED, 1126F AMNT PAIN NOTED NONE PRSNT, 1159F MED LIST DOCD IN RCRD, 1003F LEVEL OF ACTIVITY ASSESS, 1036F TOBACCO NON-USER, G8510 NEG SCR Depression PT NOT ELIG F/U/PLN DOC, 3074F SYST BP LT 130 MM HG, 3078F DIAST BP < 80 MM HG, G8420 BMI<30 AND >=22 CALC & DOCU, G8783 BP SCR PRFRM RCMDD DEFIND SCR INTVL * Preventive Medicine: Counseling: E motional health: P atient encouraged to try connecting with family or friends to boost mood. B ladder control: M ethods of controlling or managing leakage of urine discussed. E xercise: P atient advised to start, increase or maintain level of exercise/physical activity. I njury prevention: F all prevention discussed. Discussed need for cane/walker. Potential trip hazards discussed. Immunizations: P neumococcal r ecommended. I nfluenza r ecommended seasonally. Screening / Special Tests: M ammogram R ecent history:, recommended today - declined. C olonoscopy R ecent history:, recommended - declined. B one mineral Density R ecent history:, recommended - declined. * Follow Up: A s directed by * Images: Billing Information: * Visit Code: 07680 Office Visit, Est Pt., Level 3. Modifiers: 25 * Procedure Codes: G0439 ANNUAL WELLNESS VST; PPS SUBSQT VST. G2211 Complex e/m visit add on. 1090F PRES/ABSN URINE INCON ASSESS. 3288F FALL RISK ASSESSMENT DOCD. 1170F FXNL STATUS ASSESSED. 1126F AMNT PAIN NOTED NONE PRSNT. 1159F MED LIST DOCD IN RCRD. 1003F LEVEL OF ACTIVITY ASSESS. 1036F TOBACCO NON-USER. G8510 NEG SCR Depression PT NOT ELIG F/U/PLN DOC. 3074F SYST BP LT 130 MM HG. 3078F DIAST BP < 80 MM HG. G8420 BMI<30 AND >=22 CALC & DOCU. G8783 BP SCR PRFRM RCMDD DEFIND SCR INTVL. * Electronic signature of KAM Lezama on 06/05/2025 at 07:22 AM EST Sign off status: Pending * Provider: KAM Key Date: 0 11/02/2024 Generated for Joyce ace/Carlito/eTransmitting on: 1 08/06/2024 07:22 AM EST History and Physical Notes * HPI (History of Present Illness) Category Sub-Category Detail Notes Category Not es HPI Patient is here today for a [facility] k up with refills , a Medicare Annual Wellness Visit. Pt sts she is doing well and has no concerns at this time Physical Examination Category Sub-Category Detail Notes Section Note s GENERAL Pain Assessment: Pain level:0 , on a scale of 0-10 (with 10 being extreme pain) Functional Status Assessment: Patient re sponse to question of how often physical health interferes with daily activities:almost never . Able to perform ADLs-including meal preparation, grocery shopping, housework, laundry, taking medications or handling finances.Cognitive Status: alert and oriented.Ambulation Status: Fully ambulatory Fall Risk Assessment: Independant in amb ulation, adequate lighting in home. Patient has NOT fallen or had trouble walking within the past 12 months Depression Screening: Denies depressed m ood or anxiety. Describes emotional health as: did not answer Bladder Control Screening: Denies proble ms Examination Category Sub-Category Detail Notes Category Not es General Examination HEENT: unremarkable Heart: RSR Lungs: clear to auscultatio n Abdomen: bowel sounds present , soft and nontender , no organomegaly or masses , no guarding or rigidity Extremities: no leg edema General Appearance: NAD Skin: normal, no rash Neurologic Exam: Intact, gait normal Neck: supple, no lymphaden opathy Oral cavity: no lesions, mucosa m oist and WNL, no erythema Peripheral pulses: normal (2+) bilatera lly Chest: normal shape and exp ansion
--- OUTSIDE RECORDS SUMMARY | 2024-11-07 06:45 | XMS_ITS ---
Author Organization [facility] Address 1210 [facility] [address] [id number] Care Team Providers Care Career Development Director Name Role Phone Debi Allred Primary Care Provider Results Component Value Reference Range Notes CBC Venipuncture (in house) Reviewed date:12/14/2024 09:54:47 AM Interpretation:not performed- redraw? Performing Lab: Notes/Report: not performed- redraw? P-Comprehensive Metabolic Pa edison (CMP) Reviewed date:11/15/2024 03:13:50 PM Interpretation: Normal Performing Lab: Notes/Report: Test performed by [facility], [address] , [address], [place] [address] Wojciech Mueller MD, Pocket Builder CLIA: [id number] Sodium 143 135-145 mmol/L Potassium 3.9 3.5-5.3 mmol/L Chloride 106 97-108 mmol/L CO2 26 22-32 mmol/L Glucose 90 65-99 mg/dL BUN 11 8-23 mg/dL Creatinine 0.97 0.50-1.00 mg/dL Calcium 8.9 8.6-10.4 mg/dL eGFR by Creatinine 62 >59 mL/min/1.73m2 Protein 6.1 6.0-8.3 g/dL Albumin 4.0 3.5-5.3 g/dL Alkaline Phosphatase 106 35-121 IU/L ALT (SGPT) 11 <5-47 IU/L AST (SGOT) 19 <5-40 IU/L Bilirubin, Total 0.8 <0.2-1.2 mg/dL A/G Ratio 1.9 1.1-2.5 P-Lipid Panel Reviewed date:11/15/2024 03:13:50 PM Interpretation:chol 216, non-hdl 139 Performing Lab: Notes/Report: FASTING Test performed by [facility] [address] [place] [address] , [address] , [place] [address] Wojciech Mueller MD, Pocket Builder CLIA: [id number] Cholesterol 216 <200 mg/dL Triglycerides 114 <150 mg/dL HDL Cholesterol 77 >39 mg/dL Cholesterol / HDL Ratio 2.81 0.00-4.44 Ratio Non-HDL Cholesterol 139 <130 mg/dL LDL Cholesterol (Calculation) 116 <130 mg/dL LDL Cholesterol Levels* Less than 100 mg/dL Optimal 100 to 129 mg/dL Near Optimal/ Above Optimal 130 to 159 mg/dL Borderline High 160 to 189 mg/dL High 190 mg/dL and above Very High * Categories as recommended by the 2004 ATPIII guidelines LDL/HDL Ratio 1.5 <3.3 Ratio LDL Cholesterol Patient History Test Date: 11/07/2024 LDL Results: 116 Units: mg/dL % Change: - P-TSH reflex to FT4 Reviewed date:11/15/2024 03:13:50 PM Interpretation: Normal Performing Lab: Notes/Report: Test performed by [employer] [address] [place] [address] , [address], [place] [address] Wojciech Mueller MD, Pocket Builder CLIA: [id number] TSH reflex to FT4 2.08 0.43-5.25 mU/L REASON FOR VISIT LAB DRAW Encounters Encounter Location Date Provider Diagnosis [facility] [address] [place], [place] [id number] 11/07/2024 Debi Allred Anxiety with depress ion F41.8 and Hyperlipidemia, unspecified hyperlipidemia type E78.5 Assessments Encounter Date Diagnosis (ICD Code) Assessment Notes Treatment Notes Treatment Clinical Notes Section Notes 11/07/2024 Anxiety with depression (ICD-10 - F41.8) 11/07/2024 Hyperlipidemia, unspecified hyperlipidemia type (ICD-10 - E78.5) Plan Of Treatment No Information Progress Notes * WISAM CUEVASEDOB:1950 (74 yo F)Acc No.[id number]:11/07/2024 Patient: KENYA STEIN Provider: KAM Key :1950 A ge:73 Y S ex:Female Date:11/07/2024 Address:[address] [place] [address] Subjective: * Chief Complaints: * 1 . LAB DRAW. * Medical History: Objective: * Vitals: Assessment: * Assessment: 1. H yperlipidemia, unspecified hyperlipidemia type - E78.5 2 . A nxiety with depression - F41.8 Plan: * Treatment: Value Reference Range A /G Ratio 1.9 1.1-2.5 - * A lbumin 4.0 3.5-5.3 - g/dL * A lkaline Phosphatase 106 35-121 - IU/L * A LT (SGPT) 11 <5-47 - IU/L * A ST (SGOT) 19 <5-40 - IU/L * B ilirubin, Total 0.8 <0.2-1.2 - mg/dL * B UN 11 8-23 - mg/dL * C alcium 8.9 8.6-10.4 - mg/dL * C hloride 106 97-108 - mmol/L * C O2 26 22-32 - mmol/L * C reatinine 0.97 0.50-1.00 - mg/dL * G lucose 90 65-99 - mg/dL * P otassium 3.9 3.5-5.3 - mmol/L * S odium 143 135-145 - mmol/L * P rotein 6.1 6.0-8.3 - g/dL * e GFR by Creatinine 62 >59 - mL/min/1.73m2 * Rae Tavarez 11/15/2024 03: 13:41 PM > See phone encounter ?LAB: P-Lipid Panel (Collection Date & Time - 11/07/2024 10:35 AM)?chol 216, non-hdl 139* Value Reference Range C holesterol / HDL Ratio 2.81 0.00-4.44 - Ratio * C holesterol 216 H <200 - mg/dL * H DL Cholesterol 77 >39 - mg/dL * L DL Cholesterol (Calculation) 116 <130 - mg/d L * L DL/HDL Ratio 1.5 <3.3 - Ratio * N on-HDL Cholesterol 139 H <130 - mg/dL * T riglycerides 114 <150 - mg/dL * Rae Tavarez 11/15/2024 03: 13:41 PM > See phone encounter 2.?Anxiety with depression?LAB: P-Comprehensive Metabolic Panel (CMP) (Collection Date & Time - 11/07/2024 10:35 AM)?Normal* Value Reference Range A /G Ratio 1.9 1.1-2.5 - * A lbumin 4.0 3.5-5.3 - g/dL * A lkaline Phosphatase 106 35-121 - IU/L * A LT (SGPT) 11 <5-47 - IU/L * A ST (SGOT) 19 <5-40 - IU/L * B ilirubin, Total 0.8 <0.2-1.2 - mg/dL * B UN 11 8-23 - mg/dL * C alcium 8.9 8.6-10.4 - mg/dL * C hloride 106 97-108 - mmol/L * C O2 26 22-32 - mmol/L * C reatinine 0.97 0.50-1.00 - mg/dL * G lucose 90 65-99 - mg/dL * P otassium 3.9 3.5-5.3 - mmol/L * S odium 143 135-145 - mmol/L * P rotein 6.1 6.0-8.3 - g/dL * e GFR by Creatinine 62 >59 - mL/min/1.73m2 * Rae Tavarez 11/15/2024 03: 13:41 PM > See phone encounter ?LAB: P-TSH reflex to FT4 (Collection Date & Time - 11/07/2024 10:35 AM)? Normal* Value Reference Range T SH reflex to FT4 2.08 0.43-5.25 - mU/L * Rae Tavarez 11/15/2024 03: 13:41 PM > See phone encounter ?LAB: CBC Venipuncture (in house) (Collection Date & Time - 11/17/2024)?not performed- redraw?* Jane Mireles 2024 12 :52:18 PM >Not sure what happened with could not find resultsDebi Allred 12/14/2024 09:54:42 AM EDT >noted * Images: Billing Information: * Visit Code: * Procedure Codes: * Electronic signature of KAM Lezama on 06/05/2025 at 07:23 AM EST Sign off status: Pending * Provider: KAM Key Date: 0 11/07/2024 Generated for Joyce ace/Carlito/eTransmitting on: 1 08/06/2024 07:23 AM EST
--- OUTSIDE RECORDS SUMMARY | 2025-02-28 09:00 | XMS_ITS ---
Author Organization [place] Address [address] [facility] [address] [place] [phone] Care Team Providers Care Farmworker Machine Name Role Phone Debi Allred Primary Care Provider [phone] Allergies Allergen (clinical drug ingredient) Drug/Non Drug Allergy documented on EMR Reaction Allergy Type Onset Date Status Shellfish (FN) Shellfish-derived Products stomach upset Drug Allergy Active Results Component Value Reference Range Notes CT Scan : Chest with IV cont rast Reviewed date:03/16/2025 11:30:42 AM Interpretation: Performing Lab: Notes/Report: REASON FOR VISIT check up Medications Medication SIG (Take, Route, Fr equency, Duration) Notes Start Date End Date Status PARoxetine HCl 20 MG Take 1 tablet by [facility] once daily for 90 days Orally Once a day; Duration: 90 days Active Vital Signs Weight 117.6 lbs 02/28/2025 Blood pressure systolic 118 mm Hg 02/29/20 25 Blood pressure diastolic 70 mm Hg 025 Heart Rate 74 /min 02/28/2025 Height 5'3 in 02/28/2025 BMI 20.83 kg/m2 02/28/2025 Encounters Encounter Location Date Provider Diagnosis [facility] [address] [place] [id number] 02/28/2025 Debi Allred Mass of axillary flavio l of left breast N63.32 ; Anxiety with depression F41.8 and BMI 20.0-20.9, adult Z68.20 Assessments Encounter Date Diagnosis (ICD Code) Assessment Notes Treatment Notes Treatment Clinical Notes Section Notes 02/28/2025 Mass of axillary tail of left breast (ICD-10 - N63.32) 02/28/2025 Anxiety with depression (ICD-10 - F41.8) 02/28/2025 BMI 20.0-20.9, adult (ICD-10 - Z68.20) Plan Of Treatment Next Appt Details Follow Up: via phone to repo rt test results, Reason: Progress Notes * WISAM CUEVASEDOB:1950 (74 yo F)Acc No.[id number]:02/28/2025 Progress Notes Patient: KENYA STEIN Provider: KAM Key :1950 A ge:74 Y S ex:Female Date:02/28/2025 Address:[address] [place] [address] Subjective: * Chief Complaints: * 1 . Check up. * HPI: H PI: Patient is here today for luis carlos woodard. Pt is not fasting. D ermatology: c/o knot P t states she has a knot on left side under her armpit, and he has been there for 2 months. Pt states it does not itch or hurt. She had a lump and lymph nodes removed from the left breast in 1989 and has not had any screening since that time..? * ROS: D ERMATOLOGY: no R kevin. n o H yfn. G ASTROENTEROLOGY: no N ausea. n o V omiting. n o D iarrhea.? U ROLOGY: no D ifficulty urinating. n o B lood in urine. * Medical History: B reast Cancer, Anixety. * Surgical History: L umpectomy left breast with lymph node removal 1989. * Family History: F ather: 68 yrs. M other: 83 yrs. 3 sister(s) - healthy. 1 son(s) , 1 daughter(s) - healthy. . * Social History: C URRENT TOBACCO USE: No . C affeine: yes, frequency:. Alcohol: No. * Medications: T aking PARoxetine HCl 20 MG Tablet Take 1 tablet by mouth once daily for 90 days Orally Once a day , Discontinued Paxil 20 MG Tablet 1 tab(s) orally once a day , Medication List reviewed and reconciled with the patient * Allergies: S hellfish-derived Products: stomach upset. Objective: * Vitals: W t: 117.6, Temp: 97.6, BP: 118/70, HR: 74, Nurse: pe, Ht: 5'3 , BMI:20.83. * Examination: G eneral Examination: General Appearance: N AD. C hest: n ormal shape and expansion, left axillary tail with a large nontender mass, there is blood supply tracking from the old site of lumpectomy to the mass. H eart: R SR. L ungs: c lear to auscultation.? Assessment: * Assessment: 1. M ass of axillary tail of left breast - N63.32 (Primary) 2 . A nxiety with depression - F41.8 3 . B IA 20.0-20.9, adult - Z68.20 Plan: * Treatment: * Procedure Codes: G 2211 Complex e/m visit add on, 1036F TOBACCO NON-USER, G8420 BMI<30 AND >=22 CALC & DOCU, G8783 BP SCR PRFRM RCMDD DEFIND SCR INTVL, G8752 MOST RECENT SYSTOLIC BP < 140MM HG, G8754 MOST RECENT DIASTOLIC BP < 90MM HG * Follow Up: v ia phone to report test results * Images: Drawin02/28/25 [facility] Billing Information: * Visit Code: 78514 Office Visit, Est Pt., Level 3. * Procedure Codes: G2211 Complex e/m visit add on. 1036F TOBACCO NON-USER. G8420 BMI<30 AND >=22 CALC & DOCU. G8783 BP SCR PRFRM RCMDD DEFIND SCR INTVL. G8752 MOST RECENT SYSTOLIC BP < 140MM HG. G8754 MOST RECENT DIASTOLIC BP < 90MM HG. * Electronic signature of KAM Lezama on 06/05/2025 at 07:23 AM EST Sign off status: Pending * Provider: KAM Key Date: 0 02/28/2025 Generated for Joyce ace/Carlito/Jerryitting on: 1 08/06/2024 07:23 AM EST History and Physical Notes * HPI (History of Present Illness) Category Sub-Category Detail Notes Category Not es Dermatology knot Pt states she zheng s a knot on left side under her armpit, and he has been there for 2 months. Pt states it does not itch or hurt. She had a lump and lymph nodes removed from the left breast in 1989 and has not had any screening since that time. HPI Patient is here today for checkup. Pt is not fasting Examination Category Sub-Category Detail Notes Category Not es General Examination Heart: RSR Lungs: clear to auscultatio n General Appearance: NAD Chest: normal shape and exp ansion, left axillary tail with a large nontender mass, there is blood supply tracking from the old site of lumpectomy to the mass
--- OUTSIDE RECORDS SUMMARY | 2025-04-15 23:00 | XMS_ITS | Encounter Summary ---
Author Organization Healthcare Address [address] [place] [address] Care Team Providers Care Incident Manager Name Role Phone Unavailable Primary Care Provider Unavailabl e Encounter Details Date Type Department Care Team (Latest Contact Info) Description 04/16/2025 - 04/16/2025 12:04 AM EDT Hospital Encounter [facility] Breast [facility] [address] [phone] Encounter for other specified special examinations Discharge Disposition: Home or Self Care Social History Tobacco Use Types Packs/Day Years Used Date Smoking Tobacco: Never Assessed PHQ-2 Answer Date Recorded Patient Health Questionnaire-2 Score 0 05/29/2025 PHQ-9 Answer Date Recorded Patient Health Questionnaire-9 Score 0 05/29/2025 Comments Unknown Sex and Gender Information Value Date Recorded Sex Assigned at Not on file Legal Sex Female 7:55 PM EDT Gender Identity Not on file Sexual Orientation Not on file documented as of this encounter Functional Status * Over the past 2 weeks, how often have you been bothered by any of the following problems? Question Answer Date of Assessment Author Little interest or pleasure in doing things Not at all 05/29/2025 1:10 PM EST Samples, Crystal Feeling down, depressed, or hopeless Not at all 05/29/2025 1:10 PM EST Samples, Crystal Patient Health Questionnaire -2 Score 0 05/29/2025 1:10 PM EST Samples, Crystal * Question Answer Date of Assessment Author Trouble falling or staying a sleep, or sleeping too much Not at all 05/29/2025 1:10 PM EST Samples, Crystal Feeling tired or having maria le energy Not at all 05/29/2025 1:10 PM EST Samples, Crystal Poor appetite or overeating Not at all 05/29/2025 1: 10 PM EST Samples, Crystal Feeling bad about yourself - or that you are a failure or have let yourself or your family down Not at all 05/29/2025 1:10 PM EST Samples, Crystal Trouble concentrating on thi ngs, such as reading the newspaper or watching television Not at all 05/29/2025 1:10 PM EST Samples, Crystal Moving or speaking so slowly that other people could have noticed. Or the opposite - being so fidgety or restless that you have been moving around a lot more than usual Not at all 05/29/2025 1:10 PM EST Samples, Crystal Thoughts that you would be b marni off or hurting yourself in some way Not at all 05/29/2025 1:10 PM EST Samples, Crystal Patient Health Questionnaire -9 Score 0 05/29/2025 1:10 PM EST Samples, Crystal * Calculated C-SSRS Risk Score (Lifetime/Recent) Answer Date of Assessment Author No Risk Indicated 05/29/2025 1:09 PM EST Samples , Crystal * How difficult have these problems made it for you to do your work, take care of things at home, or get along with other people? Answer Date of Assessment Author Not difficult at all 05/29/2025 1:10 PM EST Jackeline Paulino * Question Answer Date of Assessment Author 1. Wish to be (Past 1 Month) No 025 1:09 PM EST Samples, Crystal 2. Non-Specific Active Suici sarah Thoughts (Past 1 Month) No 05/29/2025 1:09 PM EST Samples, Mitali jane 6. Suicidal Behavior (Lifetime) No 1:09 PM EST Samples, Crystal documented as of this encounter Plan of Treatment Not on file documented as of this encounter Procedures Procedure Name Priority Date/Time Associated Diagnosis Comments US BREAST OUTSIDE IMAGES UPLOAD Routine 04/16/2025 12:00 AM EDT Encounter for other specified special examinations documented in this encounter Results * US Breast Imaging Outside Images Upload (04/16/2025 12:00 AM EDT) Narrative IMAGING - 05/16/2025 2:53 PM EST This study was performed at an outside facility and has been loaded into the PACS system for reference only. This order has been auto-finalized and does not contain a result. us Imaging Upload Radiant IMG BI PROCEDURES Final R esult IMAGING documented in this encounter Visit Diagnoses Diagnosis Encounter for other specified special examinations documented in this encounter
--- OUTSIDE RECORDS SUMMARY | 2025-04-15 23:05 | XMS_ITS | Encounter Summary ---
Author Organization Healthcare Address [address] [place] [address] Care Team Providers Care Legal Activity Adjudicator Name Role Phone Unavailable Primary Care Provider Unavailabl e Encounter Details Date Type Department Care Team (Latest Contact Info) Description 04/16/2025 12:05 AM EDT - 04/16/2025 11:59 PM EDT Hospital Encounter [facility] Breast Care Center [facility] Breast Care Center [address] [phone] Encounter for other specified special [...] 1 Month) No 025 1:09 PM EST Samples Crystal 2. Non-Specific Active Suici sarah Thoughts (Past 1 Month) No 05/29/2025 1:09 PM EST Samples, Mitaliindio jane 6. Suicidal Behavior (Lifetime) No 5 1:09 PM EST Samples Crystal documented as of this encounter Plan of Treatment Not on file documented as of this encounter Procedures Procedure Name Priority Date/Time Associated Diagnosis Comments MAMMOGRAPHY OUTSIDE IMAGES UPLOAD Routine 04/16/2025 12:05 AM EDT Encounter for other specified special examinations documented in this encounter Results * Mammography Outside Images Upload (04/16/2025 12:05 AM EDT) Narrative IMAGING - 05/16/2025 2:53 [...]
--- OUTSIDE RECORDS SUMMARY | 2025-04-27 | XMS_ITS | Encounter Summary ---
Author Organization Healthcare Address [address] [place] [address] Care Team Providers Care Plumbing Drafter Name Role Phone Debi Allred Primary Care Provider [phone] Encounter Details Date Type Department Care Team (Latest Contact Info) Description 04/27/2025 - 04/27/2025 12:04 AM EST Hospital Encounter [facility] Breast Care Center [facility] Breast Care [address] [phone] Encounter for other specified special [...] difficult at all 05/29/2025 1:10 PM EST Jeana lesJackeline * Question Answer Date of Assessment Author 1. Wish to be (Past 1 Month) No 025 1:09 PM EST Samples, Crystal 2. Non-Specific Active Suici sarah Thoughts (Past 1 Month) No 05/29/2025 1:09 PM EST Samples, Mitaliindio jane 6. Suicidal Behavior (Lifetime) No 5 1:09 PM EST Samples, Crystal documented as of this encounter Medications at Time of Discharge Valtrex 1 g tablet every 12 hours. 04/20/2025 documented as of this encounter Plan of Treatment Not on file documented as of this encounter Procedures Procedure Name Priority Date/Time Associated Diagnosis Comments MAMMOGRAPHY OUTSIDE IMAGES UPLOAD Routine 04/27/2025 12:00 AM EST Encounter for other specified special examinations documented in this encounter Results * Mammography Outside Images Upload (04/27/2025 12:00 AM EST) Narrative IMAGING - 05/16/2025 2:53 PM EST [...] specified special examinations documented in this encounter Care Teams Plumbing Drafter Relationship Specialty Start Date End Date Debi Allred PA [facility] [place] [address] [place] [address] PCP - General 04/21/25 documented as of this encounter
--- OUTSIDE RECORDS SUMMARY | 2025-04-27 00:05 | XMS_ITS | Encounter Summary ---
Author Organization Healthcare Address [address] [place] [address] Care Team Providers Care Pig Machine Operator Helper Name Role Phone Debi Allred Primary Care Provider [phone] Encounter Details Date Type Department Care Team (Latest Contact Info) Description 04/27/2025 12:05 AM EST - 04/27/2025 11:59 PM EST Hospital Encounter [facility] Breast Care Center [facility] Breast Care Center [address] [phone] Encounter for other specified special [...] No 05/29/2025 1:09 PM EST Samples, Mitali buck 6. Suicidal Behavior (Lifetime) No 1:09 PM EST Samples, Crystal documented as of this encounter Medications at Time of Discharge Valtrex 1 g tablet every 12 hours. 04/20/2025 documented as of this encounter Plan of Treatment Not on file documented as of this encounter Procedures Procedure Name Priority Date/Time Associated Diagnosis Comments US BREAST OUTSIDE IMAGES UPLOAD Routine 04/27/2025 12:05 AM EST Encounter for other specified special examinations documented in this encounter Results * US Breast Imaging Outside Images Upload (04/27/2025 12:05 AM EST) Narrative IMAGING - 05/16/2025 2:53 [...] examinations documented in this encounter Care Teams Pig Machine Operator Helper Relationship Specialty Start Date End Date Debi Allred PA [address] [place] [address] [address] [place] [address] PCP - General 04/21/25 documented as of this encounter
--- OUTSIDE RECORDS SUMMARY | 2025-05-29 13:00 | XMS_ITS | Encounter Summary ---
Author Organization Healthcare Address [address] [place] [address] Care Team Providers Care Returns Supervisor Name Role Phone Debi Allred Primary Care Provider [phone] Encounter Details Date Type Department Care Team (Late st Contact Info) Description 05/29/2025 1:00 PM EST Office Visit [facility] [address] [facility] [facility] [place] [address] Teresita Manzano MD [address] [facility] [address] [place] [address] Recurrent malignant neoplasm of left breast (Primary Dx) Social History Tobacco Use Types Packs/Day Years Used Date Smoking Tobacco: Former Cigarettes Passive Smoke Exposure: Never Smokeless Tobacco: Never Tobacco Cessation:Counseling Given: No Alcohol Use Standard Drinks/Week Comments Yes 0 (1 standard drink = 0.6 oz pur e alcohol) daily PHQ-2 Answer Date Recorded Patient Health Questionnaire-2 Score 0 05/29/2025 PHQ-9 Answer Date Recorded Patient Health Questionnaire-9 Score 0 05/29/2025 Comments No Sex and Gender Information Value Date Recorded Sex Assigned at Not on file Legal Sex Female 7:55 PM EDT Gender Identity Not on file Sexual Orientation Not on file documented as of this encounter Last Filed Vital Signs Vital Sign Reading Time Taken Comments Blood Pressure 110/72 05/29/2025 1:12 PM EST Pulse 87 05/29/2025 1:12 PM EST Temperature - - Respiratory Rate 18 05/29/2025 1:12 PM EST Oxygen Saturation 95% 05/29/2025 1:12 PM EST Inhaled Oxygen Concentration - - Weight 52.4 kg (115 lb 8.3 oz) 05/29/2025 1:12 P M EST Height 160 cm (5' 3 ) 05/29/2025 1:12 PM EST Body Mass Index 20.46 05/29/2025 1:12 PM EST documented in this encounter Functional Status * Over the [...] difficult at all 05/29/2025 1:10 PM EST Samp Jackeline munoz * Question Answer Date of Assessment Author 1. Wish to be (Past 1 Month) No 025 1:09 PM EST Samples, Crystal 2. Non-Specific Active Suici sarah Thoughts (Past 1 Month) No 05/29/2025 1:09 PM EST Samples, Mitali buck 6. Suicidal Behavior (Lifetime) No 5 1:09 PM EST Norma, Crystal documented as of this encounter Miscellaneous Notes * Progress Notes - Taqueria Sue MD - 05/29/2025 1:00 PM EST Images from the original note were not included. [facility] New Patient Consultation This is the first [facility] visit for this 74 y.o. female referred by Dr. Kapil Blackman MD for recurrent left breast carcinoma. History of Present Illness Georgina Perry is a 74 y.o. female w/ PMHx significant for left lumpectomy and radiation therapy in 1995 (completed tamoxifen) presenting as a new consult for new carcinoma seen near the site of her previous surgery. Patient felt a new mass and PCP ordered a CT scan. 03/12/25 revealed mass in L axillary tail of the breast and subsequent left breast mammogram that showed a a 32mm mass axillary t ail of breast measuring 26mm on ultrasound 8 cmfn. Left axillary ultrasound with no suspicious lymph nodes. On CT chest, there was also a spiculated lung nodule thought to be related to radiation therapy from referring physician, however, this was discussed at tumor board 05/22/25 and w/ previous radiation would need further work up with PET/CT. She completed the PET/CT at OSH 05/28/2025. This showed FDG avidity at the left upper lobe lesion concerning for metastatic disease. The case was discussed in tumor board last week, and other missing elements of her workup include a right screening mammogram. She denies breast pain, skin or nipple changes, and nipple discharge. She also denies unintent ional weight loss, fatigue, or new back pain, neck pain, or headaches. She presents today for further evaluation and management. To note; patient's son has colorectal cancer age 52. Review of Systems: Review of Systems Constitutional: Negative for activity change, appetite change, fatigue, fever and unexpected weightchange. HENT: Negative for hearing loss, sore throat, trouble swallowing and voice change. Eyes: Negative for pain and visual disturbance. Respiratory: Negative for cough, chest tightness and shortness of breath. Cardiovascular: Negative for chest pain, palpitations and leg swelling. Gastrointestinal: Negative for abdominal pain, blood in stool, nausea and vomiting. Genitourinary: Negative for difficulty urinating, dysuria and frequency. Musculoskeletal: Negative for arthralgias, back pain, myalgias and neck pain. Skin: Negative for color change and wound. Neurological: Negative for dizziness, speech difficulty, weakness and headaches. Psychiatric/Behavioral: Negative for agitation and confusion. The patient is nervous/anxious. All other systems reviewed and are negative. Past Medical History Past Medical History[1] Past Surgical History Surgical History[2] Social History Patient reports that she has quit smoking. Her smoking use included cigarettes. She has never been exposed to tobacco smoke. She has never used smokeless tobacco. She reports current alcohol use. Shereports that she does not use drugs. Family History Family History[3] Obstetric and Gynecologic History -Menarche: 15y F -LMP: Not answered per patient -OCP hx: yes, 1 year -G1@: 2 - -Breast feeding (m): no -Infertility treatments: no -Menopause: yes -HRT: no -Hyst/Ooph: no -Previous Bx: yes No LMP recorded. Patient is postmenopausal. Current Medications Medications Ordered Prior to Encounter[4] Allergies Allergies[5] PHYSICAL EXAMINATION ECOG Performance Status: 0: Fully active, able to carry on all pre-disease performance without restriction Vital Signs: Visit Vitals BP 110/72 (BP Location: Right arm, Patient Position: Sitting, BP Cuff Size: Adult) Pulse 87 Resp 18 Ht 1.6 m (5' 3 ) Wt 52.4 kg (115 lb 8.3 oz) SpO2 95% BMI 20.46 kg/m?? OB Status Postmenopausal Smoking Status Former BSA 1.53 m?? General: The patient is a well-developed individual who appears the stated age, the patient's speech pattern and movements are normal, and affect is appropriate. Head: The head is normocephalic. Neck: The neck is supple, the thyroid is not enlarged, there are no palpable masses, and the trachea is in the midline. Lymphatics: The supraclavicular, submental, cervical, and axillary regions are free of significant lymphadenopathy. Chest: The chest expands symmetrically, the AP diameter appears normal, and the lungs are clear to auscultation bilaterally without wheezes, rhonchi or rales. Heart: The rhythm is regular, the heart is not enlarged, and there are no murmurs, rubs, gallops, or thrills audible. Right Breast: The skin, nipple, and areola appear normal, there is no skin dimpling with movement of the pectoralis, there is no nipple retraction, no nipple discharge can be elicited, the parenchymais mildly nodular, there are no dominant masses, and the axillary tail is normal. Left Breast: The skin, nipple, and areola appear normal, there is no skin dimpling with movement ofthe pectoralis, and there is no nipple retraction. There is a mass at the distal end of the axillary incision (see pic below). Abdomen: The abdomen is soft, flat and non-tender, the liver is not enlarged, and there are no palpable masses. Back: There is no vertebral column tenderness. Skin: The skin appears normal and there are no suspicious rashes or lesions. Extremities: The extremities are without deformity, cyanosis, and edema. IMAGING: Imaging has been reviewed here by our radiologists; we have personally reviewed these images/imaging studies. All Other Imaging: Mammography Outside Images Upload Result Date: 05/16/2025 Narrative: This study was performed at an outside facility and has been loaded into the PACS systemfor reference only. This order has been auto-finalized and does not contain a result. US Breast Imaging Outside Images Upload Result Date: 05/16/2025 Narrative: This study was performed at an outside facility and has been loaded into the PACS systemfor reference only. This order has been auto-finalized and does not contain a result. PET/CT (05/28/2025) PATHOLOGY: Pathology has not been reviewed here. I have personally reviewed the pathology report. CARE TEAM Primary Care Physician: Debi Allred PA Plastic and Reconstructive Surgery: N/A Medical Oncology: N/A Radiation Oncology: N/A ASSESSMENT: Georgina Perry is a 74 y.o. female who wasreferred by Dr. Kapil Blackman MD for Left breast carcinoma. PMHx significant for left lumpectomy and radiation therapy in 1995 (completed tamoxifen). DISCUSSION: Georgina and I reviewed her situation in detail including her clinical exam findings, imaging and pathology reports. We began by discussing the natural history of breast cancer, and the rationale for both locoregional and systemic therapy, which is multi-step and multidisciplinary. We specifically reviewed that she has been diagnosed with a recurrent breast cancer. Whether this represents a new breast cancer in the ipsilateral breast or a recurrence of her previously-treated breast cancer (which we may never know), the work up and management are similar. We discussed that the vast majority of breast cancers are not related to an inherited gene, but that for many patients, especially those with a family history of breast or ovarian cancer, genetic testing is valuable. Given that Georgina has a diagnosis of breast cancer twice with recurrence and a sonw/ colorectal cancer, we recommended referring her to our Risk Assessment Program to discuss genetic testing for which patient denied at this time but would revisit in the future. We then discussed that the first step in the work up of recurrent breast cancer is staging scans torule out the presence of metastatic disease. If metastatic disease is found, surgery is typically not indicated, and systemic therapy (under the direction of medical oncology) becomes the priority. CT/PET performed on 05/28/25 shows that the left upper lobe lung nodule likely represents metastasis based on it's FDG avidity. I discussed this finding with the referring medical oncologist Dr. Blackman and he will arrange image guided biopsy for confirmation, followed by systemic therapy if indicated. Until this work-up is complete, further workup of the right breast can probably be deferred. We are available for palliative resection at the discretion of Dr. Blackman if indicated. PLAN: - IR guided biopsy of the left upper lobe lesion at direction of Dr. Blackman - Follow up PRN at discretion of Dr. Blackman pending biopsy results Dr. Teresita Manzano MD Gis Programmer of Surgical Oncology [facility] [1] Past Medical History: Diagnosis Date Breast cancer [2] Past Surgical History: Procedure Laterality Date BREAST BIOPSY Left x2 BREAST LUMPECTOMY Left 1993 TUBAL LIGATION [3] Family History Problem Relation Name Age of Onset Colon cancer Child [4] Current Outpatient Medications on File Prior to Visit Medication Sig Dispense Refill PARoxetine (Paxil) 20 MG tablet Take 1 tablet by mouth daily. Valtrex 1 g tablet every 12 hours. No current facility-administered medications on file prior to visit. [5] No Known Allergies Cosigned by Teresita Manzano MD at 05/30/2025 10:45 AM EST Associated attestation - Teresita Manzano MD - 05/30/2025 10:45 AM EST Images from the original note were not included. Attending Attestation: I personally saw and evaluated the patient with the resident. I attest to being involved in providing substantive time in patient care. I discussed the case with them and agree with the findings as documented. The discussion and plan reflect my edits and medical decision making. Dr. Teresita Manzano MD Gis Programmer of Surgical Oncology [facility] documented in this encounter Plan of Treatment Not on file documented as of this encounter Visit Diagnoses Diagnosis Recurrent malignant neoplasm of left breast- Primary documented in this encounter Additional Health Concerns Assessment Noted Time PHQ-9 Depression Total Score: 0 05/29/20 1:10 PM EST A fall risk assessment has been complete d for the patient 05/29/2025 1:09 PM EST A Body Mass Index follow-up plan has been documented for the patient 05/30/2025 10:45 AM EST documented as of this encounter Care Teams Returns Supervisor Relationship Specialty Start Date End Date Debi Allred PA [address] [place] [address] [address] [place] [address] PCP - General 04/21/25 documented as of this encounter
[2025-06-05] VITALS (20 sets, daily range): BP systolic 105–158; BP diastolic 53–84; PULSE 60–79; RESP 14–20; TEMP 36.4–36.9; O2SAT 95–100; BMI 21.2
--- OUTSIDE RECORDS SUMMARY | 2025-06-05 07:22 | XMS_ITS | Encounter Summary ---
Author Organization Healthcare Address [address] [place] [address] Care Team Providers Care Communications Equipment Supervisor Name Role Phone Debi Allred Primary Care Provider [phone] Encounter Details Date Type Department Care Team ([facility] st Contact Info) Description 04/17/2015 Orders Only External Location [address] [place] [address] Provider, External Social History Tobacco Use Types Packs/Day Years Used Date Smoking Tobacco: Never Assessed Comments Unknown Sex and Gender Information Value Date Recorded Sex Assigned at Not on file Legal Sex Female 7:55 PM EDT Gender Identity Not on file Sexual Orientation Not on file documented as of this encounter Plan of Treatment Not on file documented as of this encounter Procedures Procedure Name Priority Date/Time Associated Diagnosis Comments MAMMOGRAPHY OUTSIDE IMAGES 04/17/2015 8:38 AM EDT documented in this encounter Results * MAMMOGRAPHY OUTSIDE IMAGES (04/17/2015 8:38 AM EDT) Anatomical Region Laterality Modality Breast Mammography 04/17/2015 8:38 AM EDT us External Provider IMG BI PROCEDURES Edited Resul t - Final documented in this encounter Visit Diagnoses Not on filedocumented in this encounter Care Teams Communications Equipment Supervisor Relationship Specialty Start Date End Date Debi Allred PA [address] [place] [address] [address] [place] [address] PCP - General 04/21/25 documented as of this encounter
--- OUTSIDE RECORDS SUMMARY | 2025-06-05 07:22 | XMS_ITS | Encounter Summary ---
Author Organization Healthcare Address [address] [place] [address] Care Team Providers Care Flasher Adjuster Name Role Phone Debi Allred Primary Care Provider [phone] Encounter Details Date Type Department Care Team ([facility] st Contact Info) Description 04/17/2015 Orders Only External Location [address] [place] [address] Provider, External Social History Tobacco Use Types [...] Procedure Name Priority Date/Time Associated Diagnosis Comments XR MSK OUTSIDE IMAGES 04/17/2015 8:45 AM EDT documented in this encounter Results * XR MSK OUTSIDE IMAGES (04/17/2015 8:45 AM EDT) Anatomical Region Laterality Modality Radiographic [place] ging 04/17/2015 8:45 AM EDT us External Provider IMG XR PROCEDURES Edited Resul t - Final documented in this encounter Visit Diagnoses Not on filedocumented in this encounter Care Teams Flasher Adjuster Relationship Specialty Start Date End Date Debi Allred PA [facility] [address] [place] [address] PCP - General 04/21/25 documented as of this encounter
--- OUTSIDE RECORDS SUMMARY | 2025-06-05 07:22 | XMS_ITS | Clinical Summary ---
Author Organization [facility] Address [address] [place] [address] Care Team Providers Care Belt Notcher Name Role Phone Unavailable Primary Care Provider Unavailabl e Social History Tobacco Use Types Packs/Day Years Used Date Smoking Tobacco: Never Assessed Comments Unknown Sex and Gender Information Value Date Recorded Sex Assigned at Not on file Legal Sex Female 9:53 AM EST Gender Identity Not on file Sexual Orientation Not on file Plan of Treatment Upcoming Encounters Date Type Department Care Team (Late st Contact Info) Description 07/12/2025 3:00 PM EST Office Visit [facility]ERY [address] [facility] [address] [place] [phone] Carlitos Blanchard MD [address] [facility] [address] [place] [phone] Health Maintenance Due Date Last Done Comments DXA SCAN 1952 TDAP/TD VACCINES (1 - Tdap) 11/17/1971 MAMMOGRAM 1992 COLOGUARD 1997 COLON CANCER SCREENING 5 YEAR SIGMOIDOSCOPY 1997 COLONOSCOPY [address]CER SCREENING 1997 CT COLONOGRAPHY 1997 FECAL OCCULT BLOOD TEST 1997 FIT Testing (1 year) 1997 Pneumococcal Vaccine 50+ (1 of 1 - PCV) 2002 ZOSTER VACCINE (1 of 2) 2002 INFLUENZA VACCINE 01/19/2025 COVID-19 Vaccine (1 - season) 2025 ANNUAL PHYSICAL 05/09/2025 HEPATITIS C SCREENING 05/09/2025
--- OUTSIDE RECORDS SUMMARY | 2025-06-05 07:23 | XMS_ITS | Encounter Summary ---
Author Organization Healthcare Address [address] [place] [address] Care Team Providers Care Onshore Diver Name Role Phone Debi Allred Primary Care Provider [phone] Encounter Details Date Type Department Care Team (Late st Contact Info) Description 05/29/2025 Lab Requisition [facility] [address] [place] [id number] Teresita Manzano MD [address] [facility] [address] [address] Unspecified lump in unspecified breast Social History Tobacco Use Types Packs/Day Years Used Date Smoking Tobacco: Former Cigarettes Passive Smoke Exposure: Never Smokeless Tobacco: Never Alcohol Use Standard Drinks/Week Comments Yes 0 [...] Mitali jane 6. Suicidal Behavior (Lifetime) No 5 1:09 PM EST Samples Crystal documented as of this encounter Plan of Treatment Not on file documented as of this encounter Procedures Procedure Name Priority Date/Time Associated Diagnosis Comments SURGICAL PATHOLOGY CONSULT Routine 05/29/2025 11:29 AM EST Unspecified lump in unspecified breast documented in this encounter Results * Surgical Pathology Consult (05/29/2025 11:29 AM EST) Case Report Surgical Pathology Consult Case: [id number] Authorizing Provider: Teresita Manzano MD Collected: 05/29/20251128 Ordering Location: [facility] Lab Received: 05/29/2025 1129 Pathologist: Mode Ashraf MD Specimen: Breast, Left, [id number] 05/30/2025 3:35 PM EST [facility] Final Diagnosis A. 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 SEE COMMENT. 05/30/2025 3:35 PM EST [facility] at 1535 EST Comment Sample consists of a solid growth of tumor cells in nests without adjacent stromal tissue. The differential includes conventional invasive ductal carcinoma, [place] grade 2, solid papillary carcinoma in situ, solid papillary carcinoma with invasion, encapsulated papillary carcinoma with or without invasion, invasive papillary carcinoma and others. Definitive distinction will likely require examination of the entire lesion. The outside report indicates that breast biomarker studies demonstrated ER positive (100%, 3+), WA positive (5%, 2+) and HER2 by IHC negative (1+). Solid papillary carcinoma frequently demonstrates neuroendocrine differentiation, but immunostains were not discriminate whether the lesion was invasive or not and the stains may be better performed on a complete resection. 05/30/2025 3:35 PM EST [facility] Clinical Information N63.0 - Unspecified lump in unspecified breast [ICD-10-CM] 05/30/2025 3:35 PM EST [facility] Gross Description A. [id number] Received along with a corresponding pathology report from [facility]ology [facility]ology Laboratory are 1 slide(s) labeled outside case: [id number] collected on 04/27/2025. 05/30/2025 3:35 PM EST [facility] Note: A resident was involved in the service. I attest I examined the relevant preparations for the specimens and confirmed the diagnosis or interpretation. 05/30/2025 3:35 PM EST [facility] Tissue Left breast structure / Unknown 05/29/2025 11:29 AM EST 05/29/2025 11:29 AM EST us Teresita Manzano MD LAB PATHOLOGY ORDERABLES Final R esult [facility] [address] [place] [address] documented in this encounter Visit Diagnoses Diagnosis Unspecified lump in unspecified breast documented in this encounter Additional Health Concerns Assessment Noted Time PHQ-9 Depression Total Score: 0 05/29/20 1:10 PM EST A fall risk assessment has been complete d for the patient 05/29/2025 1:09 PM EST A Body Mass Index follow-up plan has been documented for the patient 05/30/2025 10:45 AM EST documented as of this encounter Care Teams Onshore Diver Relationship Specialty Start Date End Date Debi Allred PA [address] [place] [address] [address] [place] [address] PCP - General 04/21/25 documented as of this encounter
--- OUTSIDE RECORDS SUMMARY | 2025-06-05 07:23 | XMS_ITS | Encounter Summary ---
Author Organization Healthcare Address [address] [place] [address] Care Team Providers Care Cna Per Diem Name Role Phone Debi Allred Primary Care Provider [phone] Encounter Details Date Type Department Care Team ([facility] st Contact Info) Description 05/28/2025 Orders Only External Location [address] [place] [id number] Provider, External Social History Tobacco Use Types [...] Risk Indicated 05/29/2025 1:09 PM EST Samples Crystal * How difficult have these problems made it for you to do your work, take care of things at home, or get along with other people? Answer Date of Assessment Author Not difficult at all 05/29/2025 1:10 PM EST Samp les, Crystal * Question Answer Date of Assessment [...] Procedure Name Priority Date/Time Associated Diagnosis Comments PET OUTSIDE IMAGES 05/28/2025 documented in this encounter Results * PET OUTSIDE IMAGES (05/28/2025) Anatomical Region Laterality Modality Nuclear Medicine 05/28/2025 External Provider IMG NM PROCEDURES Edited Resul t - Final documented in this encounter Visit Diagnoses Not on filedocumented in this encounter Care Teams Cna Per Diem Relationship Specialty Start Date End Date Debi Allred PA [address] [place] [address] [place] [address] PCP - General 04/21/25 documented as of this encounter
--- OUTSIDE RECORDS SUMMARY | 2025-06-05 07:23 | XMS_ITS | Patient Health Record ---
[facility] Address [address] [facility] 36 [facility] [address] [place] [id number] Care Team Providers Care Adult Parole Officer Name Role Phone Debi Allred Primary Care Provider [phone] Allergies Allergen (clinical drug ingredient) Drug/Non Drug Allergy documented on EMR Reaction Allergy Type Onset Date Status Shellfish (FN) Shellfish-derived Products stomach upset Drug Allergy Active Results Component Value Reference Range Notes Ultrasound : Breast, left Reviewed date:03/29/2025 11:59:23 AM Interpretation: Performing Lab: Notes/Report: CT Scan : Chest with IV cont rast Reviewed date:03/16/2025 11:30:42 AM Interpretation: Performing Lab: Notes/Report: H-BUN/CREAT Reviewed date:03/16/2025 11:30:43 AM Interpretation:Normal Performing Lab: Notes/Report: BUN 9 7-17 mg/dl CREATT 0.90 0.52-1.04 mg/dl GFRAA 74 >60 ML/MIN EGFR 62 >60 ml/min CBC Venipuncture (in house) Reviewed date:12/14/2024 09:54:47 AM Interpretation:not performed- redraw? Performing Lab: Notes/Report: not performed- redraw? P-Comprehensive Metabolic Pa edison (CMP) Reviewed date:11/15/2024 03:13:50 PM Interpretation: Normal Performing Lab: Notes/Report: Test performed by [facility], [facility] , [address], [place] [address] Wojciech Mueller MD, Lockstitch Lining Maker CLIA: [id number] Sodium 143 135-145 mmol/L Potassium 3.9 3.5-5.3 [...] Performing Lab: Notes/Report: FASTING Test performed by [facility], [address] , [place] [address] Wojciech Mueller MD, Lockstitch Lining Maker CLIA: [id number] Cholesterol 216 <200 mg/dL Triglycerides 114 <150 [...] Normal Performing Lab: Notes/Report: Test performed by [facility] [address] , [address], [place] [address] Wojciech Mueller MD, Lockstitch Lining Maker CLIA: [id number] TSH reflex to FT4 2.08 0.43-5.25 mU/L Ultrasound : Breast, left Reviewed date:04/20/2025 01:01:09 PM Interpretation: Performing Lab: Notes/Report: Mammogram : Diagnostic Left Breast Reviewed date:04/20/2025 01:00:25 PM Interpretation: Performing Lab: Notes/Report: Mammogram : Diagnostic Left Breast Reviewed date:04/20/2025 01:00:25 PM Interpretation: Performing Lab: Notes/Report: Ultrasound Guided Biopsy: le ft breast Reviewed date:05/08/2025 09:28:22 AM Interpretation: Performing Lab: Notes/Report: Ultrasound Guided Biopsy: le ft breast Reviewed date:05/08/2025 09:28:22 AM Interpretation: Performing Lab: Notes/Report: Ultrasound Guided Biopsy: le ft breast Reviewed date:05/08/2025 09:28:22 AM Interpretation: Performing Lab: Notes/Report: Reason For Referral Reason patient needs to see Dr. Blackman at [facility] and Dr. GARCIA for surgery Diagnosis 1 Other abnormal and i nconclusive findings on diagnostic imaging of breast (R92.8) Referral Organization [facility] Referring Provider First Name Debi Referring Provider Last Name Brigida Referring Provider Speciality Physician Lab Aide General Notes Madison Ly 2024 09:09:28 AM > faxed to [facility] Oncology, Madison Ly 05/09/2025 10:37:59 AM > appt at 11:15 on 05/14/2025; patient informed Referral Priority Routine Medications Medication SIG (Take, Route, Fr equency, Duration) Notes Start Date End Date Status PARoxetine HCl 20 MG Take 1 tablet by [facility] once daily for 90 days Orally Once a day; Duration: 90 days Active Valtrex 1 GM 2 tablets Orally twi ce a day; Duration: 1 days 04/20/2025 Active Immunizations Vaccine Route Administration Date Status Comme nts COVID 19 Eloisa IM Intramuscular 08/29/2020 Administered Problems Problem Type SNOMED Code ICD Code Onset Dates Problem Status W/U Status Risk Notes Problem Abnormal findings on diagnostic imaging of breast (627660168) Other abnormal and inconclusive findings on diagnostic imaging of breast (R92.8) Active confirmed Problem Hyperlipidaemia (86214444) Hyperlipidemia, unspecified hyperlipidemia type (E78.5) Active confirmed Problem Anxiety depression (074642566) Anxiety with depression (F41.8) Active confirmed Problem Radiology result abnormal (683530354) Abnormal chest CT (R93.89) Active confirmed Vital Signs Heart Rate 74 /min 02/28/2025 Blood pressure diastolic 70 mm Hg 02/28/2025 Height 5'3 in 02/28/2025 Blood pressure systolic 118 mm Hg 02/28/2025 Weight 117.6 lbs 02/28/2025 BMI 20.83 kg/m2 02/28/2025 Encounters Encounter Location Date Provider Diagnosis [facility] [address] [place] [id number] 11/02/2024 Debi Allred Adult general medica l examination Z00.00 ; Anxiety with depression F41.8 ; Hyperlipidemia, unspecified hyperlipidemia type E78.5 and BMI 21.0-21.9, adult Z68.21 [facility] [address] [place] [id number] 11/07/2024 Debi Allred Anxiety with depress ion F41.8 and Hyperlipidemia, unspecified hyperlipidemia type E78.5 [facility] [address] [place] [id number] 02/28/2025 Debi Allred Mass of axillary flavio l of left breast N63.32 ; Anxiety with depression F41.8 and BMI 20.0-20.9, adult Z68.20 [facility] [address] [place], [place] [id number] 06/07/2024 Debi Crowdy [facility] [address] [place], [place] [id number] 11/15/2024 Debi Crowdy [facility] [address] [place], [place] [id number] 03/05/2025 Debi Crowdy [facility] [address] [place], [place] [id number] 03/16/2025 Debi Crowdy [facility] [address] [place], [place] [id number] 03/29/[address] R9 3.89 and Mass of left breast, unspecified quadrant N63.20 [facility] [address] [place], [place] [id number] 04/19/2025 Debi Crowdy [facility] [address] [place], [place] [id number] 04/19/2025 Debi Crowdy [facility] [address] [place], [place] [id number] 05/08/2025 Debi Hernandy Assessments Encounter Date Diagnosis (ICD Code) Assessment [...] left breast, unspecified quadrant (ICD-10 - N63.20) 02/28/2025 BMI 20.0-20.9, adult (ICD-10 - Z68.20) 11/02/2024 Hyperlipidemia, unspecified hyperlipidemia type (ICD-10 - E78.5) Patient will come back tomorrow fasting for labs CBC, CMP, Lipid, TSH with refled to Free T4. 11/02/2024 BMI 21.0-21.9, adult (ICD-10 - Z68.21) Plan Of Treatment No Information Insurance Providers Payer Name Payer Address Payer Phone Subscriber Number Group Number Insured Name Patient Relationship to Insured Coverage Start Date Coverage End Date MEDICARE PART B [address] [address] [place] [address] [id number] KENYA CUEVAS Self - patient is the insured [facility] MEDICARE SUPPLEMENT [address] [address] [place], [place] [phone] [id number] KENYA CUEVAS Self - patient is the insured Medical (General) History Medical History History ICD Code Breast Cancer Anixety Surgical History Surgery Date(Month/Year) Lumpectomy left breast with lymph node r emoval 1989
--- OUTSIDE RECORDS SUMMARY | 2025-06-05 07:23 | XMS_ITS | Encounter Summary ---
Author Organization [facility] Address [address] [place] [address] Care Team Providers Care Concrete Mixing Truck Driver Name Role Phone Debi Allred Primary Care Provider [phone] Encounter Details Date Type Department Care Team (Latest Contact Info) Description 05/29/2025 Travel Social History Tobacco Use Types Packs/Day Years [...] Risk Indicated 05/29/2025 1:09 PM EST Samples Jackeline * How difficult have these problems made [...] Behavior (Lifetime) No 5 1:09 PM EST Norma Crystal documented as of this encounter Plan of Treatment Not on file documented as of this encounter Visit Diagnoses Not on filedocumented in this encounter Additional Health Concerns Assessment Noted Time PHQ-9 Depression Total Score: 0 05/29/20 25 1:10 PM EST A fall risk assessment has been complete d for the patient 05/29/2025 1:09 PM EST A Body Mass Index follow-up plan has been documented for the patient 05/30/2025 10:45 AM EST documented as of this encounter Care Teams Concrete Mixing Truck Driver Relationship Specialty Start Date End Date Debi Allred PA [address] [place] [address] [address] [place] [address] PCP - General 04/21/25 documented as of this encounter
--- OUTSIDE RECORDS SUMMARY | 2025-06-05 07:24 | XMS_ITS | Encounter Summary ---
Author Organization [facility] Address [address] [place] [address] Care Team Providers Care Zipper Setter Name Role Phone Debi Allrde Primary Care Provider [phone] Reason for Visit * Reason Onset Date Comments [facility] Nurse Liaison call 05/30/2025 Encounter Details Date Type Department Care Team (Late st Contact Info) Description 05/30/2025 Telephone PAV Breast [facility] [address] [facility], [address]nd [place] [address] Ashlie Gray [phone] [facility] Nurse Liaison call Social History Tobacco Use Types Packs/Day Years [...] on file documented as of this encounter Miscellaneous Notes * Telephone Encounter - Ashlie Gray - 05/30/2025 11:42 AM EST Patient Name: Georgina Perry : 1950 Date: 05/30/2025 [place] [facility] [place] Dr. Kapil Blackman Affiliate Site: [facility] Services Provided: Pre/Post Appointment Phone Call Educated On: [facility] Nurse Liaison/Psych Oncology Services Patient was [place] [facility] [place] medical oncologist. [facility] Nurse Liaison contacted the patient for a pre appointment phone call on 05/24 and a post appointment call on 05/30. Explained liaisonservices as well as other resources at [facility] including social work and financial counselor available through Psych Oncology services. Patient states understanding of information, no needs at this time. Answered all questions. Patient was given liaison contact information and encouraged to call with any questions, needs or concerns. FRANK Lopez Nurse Liaison documented in this encounter Plan of Treatment [...] documented as of this encounter Care Teams Zipper Setter Relationship Specialty Start Date End Date Debi Allred PA [address] [place] [address] [address] [place] [address] PCP - General 04/21/25 documented as of this encounter
--- OUTSIDE RECORDS SUMMARY | 2025-06-05 07:24 | XMS_ITS | Clinical Summary ---
Author Organization [facility] Address [address] [place] [address] Care Team Providers Care Document Control Supervisor Name Role Phone Debi Allred Primary Care Provider [phone] Allergies No known active allergies Medications PARoxetine (Paxil) 20 MG tablet Take 1 tablet by mouth daily. Active Valtrex 1 g tablet every 12 hours. 04/20/2025 Active Active Problems Problem Noted Date Diagnosed Date Recurrent malignant neoplasm of left breast 05/21 Encounters Date Type Department Care Team Description 05/30/2025 Telephone PAV [facility] [address] [place] [address] sAhlie Gray Nurse Liaison call 05/29/2025 1:00 PM EST Office Visit PAV [facility] [address] [address] Teresita Manzano MD Recurrent malignant neoplasm of left breast (Primary Dx) 05/29/2025 Travel 05/29/2025 Lab Requisition [facility] [address] [place] [address] Teresita Manzano MD Unspecified lump in unspecified breast 05/28/2025 Orders Only External Location [address] [place] [address] Provider, External 05/22/2025 Telephone PAV [facility] [address] [address] Candida Esteban RN 04/27/2025 12:05 AM EST - 04/27/2025 11:59 PM EST Hospital Encounter PAV [facility] [address] [facility] [address] [place] [address] Encounter for other specified special examinations Discharge Disposition: Home or Self Care 04/27/2025 - 04/27/2025 12:04 AM EST Hospital Encounter [facility] [address] [facility] [address] [place] [address] Encounter for other specified special examinations Discharge Disposition: Home or Self Care 04/16/2025 12:05 AM EDT - 04/16/2025 11:59 PM EDT Hospital Encounter [facility] [address] [facility] [address] [place] [address] Encounter for other specified special examinations Discharge Disposition: Home or Self Care 04/16/2025 - 04/16/2025 12:04 AM EDT Hospital Encounter PAV [facility] [address] [facility] [address] [place] [address] Encounter for other specified special examinations Discharge Disposition: Home or Self Care from Last 3 Months Family History Medical History Relation Name Comments Colon cancer Child Relation Name Status Comments Child Alive Social History Tobacco Use Types Packs/Day Years [...] on file Sexual Orientation Not on file Last Filed Vital Signs Vital Sign Reading [...] Mass Index 20.46 05/29/2025 1:12 PM EST Plan of Treatment Health Maintenance Due Date Last Done Comments [facility]-Bone Density Scan 1950 [facility]-Hepatitis C Screening 1950 [facility]-Medicare Annual Wellness (AWV) 1950 [facility]-/Child/Adol SDOH Screenings 1950 [facility]- SDOH Screenings 1970 [facility]-Adult SDOH Screenings 1970 [facility]-DTaP,Tdap,and Td Vaccine s (1 - Tdap) 11/17/1971 [facility]-Pneumococcal Vaccine: 50 + Years (1 of 2 - PCV) 11/17/1971 [facility]-Zoster Vaccines (1 of 2) 11/17/1971 CT Colonography 1997 Colonoscopy 1997 FIT-DNA 1997 FIT 1997 FOBT 1997 Sigmoidoscopy 1997 [facility]-Colorectal Cancer Screening 1997 [id number] Vaccine (2 - Eloisa risk series) 09/26/2020 08/29/2020 [facility]-Influenza Vaccine (#1) 2025 [facility]-Depression Screening 05/29/2026 025, 05/29/2025 [facility]-RSV Vaccine: 60+ Years o r (1 - 1-dose 75+ series) 11/17/2027 HPV Vaccines (No Doses Required) Completed [facility]-HIB Vaccines Aged Out No longer e ligible based on patient's age to complete this topic [facility]-Hepatitis A Vaccines Aged Out No longer eligible based on patient's age to complete this topic [facility]-IPV Vaccines Aged Out No longer e ligible based on patient's age to complete this topic [facility]-Rotavirus Vaccines Aged Out No lo nger eligible based on patient's age to complete this topic Procedures Procedure Name Priority Date/Time Associated Diagnosis Comments SURGICAL PATHOLOGY CONSULT Routine 05/29/2025 11:29 AM EST Unspecified lump in unspecified breast PET OUTSIDE IMAGES 05/28/2025 US BREAST OUTSIDE IMAGES UPLOAD Routine 04/27/2025 12:05 AM EST Encounter for other specified special examinations MAMMOGRAPHY OUTSIDE IMAGES UPLOAD Routine 04/27/2025 12:00 AM EST Encounter for other specified special examinations MAMMOGRAPHY OUTSIDE IMAGES UPLOAD Routine 04/16/2025 12:05 AM EDT Encounter for other specified special examinations US BREAST OUTSIDE IMAGES UPLOAD Routine 04/16/2025 12:00 AM EDT Encounter for other specified special examinations from Last 3 Months Results * Surgical Pathology Consult (05/29/2025 11:29 AM EST) Case Report Surgical Pathology Consult Case: [id number] Authorizing Provider: Teresita Manzano MD Collected: 05/29/20251128 Ordering Location: [facility] Received: 05/29/20251128 Pathologist: Mode Ashraf MD Specimen: Breast, Left, [id number] 05/30/2025 3:35 PM EST [facility] Final Diagnosis A. 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 SEE COMMENT. 05/30/2025 3:35 PM EST [facility] at 1535 EST Comment Sample consists of a solid growth of tumor cells in nests without adjacent stromal tissue. The differential includes conventional invasive ductal carcinoma, Aurora grade 2, solid papillary carcinoma in situ, solid papillary carcinoma with invasion, encapsulated papillary carcinoma with or without invasion, invasive papillary carcinoma and others. Definitive distinction will likely require examination of the entire lesion. The outside report indicates that breast biomarker studies demonstrated ER positive (100%, 3+), NE positive (5%, 2+) and HER2 by IHC negative (1+). Solid papillary carcinoma frequently demonstrates neuroendocrine differentiation, but immunostains were not discriminate whether the lesion was invasive or not and the stains may be better performed on a complete resection. 05/30/2025 3:35 PM EST [facility] Clinical Information N63.0 - Unspecified lump in unspecified breast [ICD-10-CM] 05/30/2025 3:35 PM EST [facility] Gross Description A. [id number] Received along with a corresponding pathology report from [facility]ology [facility]ology Laboratory are 1 slide(s) labeled outside case: [id number] collected on 04/27/2025. 05/30/2025 3:35 PM EST [facility] Note: A resident was involved in the service. I attest I examined the relevant preparations for the specimens and confirmed the diagnosis or interpretation. 05/30/2025 3:35 PM EST [facility] Tissue Left breast structure / Unknown 05/29/2025 11:29 AM EST 05/29/2025 11:29 AM EST us Teresita Manzano MD LAB PATHOLOGY ORDERABLES Final R esult [facility] [address] [place] [address] * PET OUTSIDE IMAGES (05/28/2025) Anatomical Region Laterality Modality Nuclear Medicine 05/28/2025 us External Provider IMG NM PROCEDURES Edited Resul t - Final * US Breast Imaging Outside Images Upload (04/27/2025 12:05 AM EST) Only the most recent of2 resultswithin the time period is included. Narrative IMAGING - 05/16/2025 2:53 PM EST This study was performed at an outside facility and has been loaded into the PACS system for reference only. This order has been auto-finalized and does not contain a result. us Imaging Upload Radiant IMG BI PROCEDURES Final R esult IMAGING * Mammography Outside Images Upload (04/27/2025 12:00 AM EST) Only the most recent of2 resultswithin the time period is included. Narrative IMAGING - 05/16/2025 2:53 PM EST This study was performed at an outside facility and has been loaded into the PACS system for reference only. This order has been auto-finalized and does not contain a result. us Imaging Upload Radiant IMG BI PROCEDURES Final R esult IMAGING from Last 3 Months Insurance MEDICARE [facility] Care Teams Document Control Supervisor Relationship Specialty Start Date End Date Debi Allred PA [address] [place] [address] PCP - General 04/21/25
--- OUTSIDE RECORDS SUMMARY | 2025-06-05 07:24 | XMS_ITS | Encounter Summary ---
Author Organization [facility] Address [address] [place] [address] Care Team Providers Care Attendance Officer Name Role Phone Debi Allred Primary Care Provider [phone] Encounter Details Date Type Department Care Team (Late st Contact Info) Description 05/22/2025 Telephone [facility] [address] [facility], [address] [place] [address] Candida Esteban RN [facility] None Social History Tobacco Use Types Packs/Day Years Used Date Smoking Tobacco: Never Assessed Comments Unknown Sex and Gender Information Value Date Recorded Sex Assigned at Not on file Legal Sex Female 7:55 PM EDT Gender Identity Not on file Sexual Orientation Not on file documented as of this encounter Miscellaneous Notes * Telephone Encounter - Candida Esteban, RN - 05/22/2025 11:09 AM EST Attempted to call patient regarding appointment today with Dr. Manzano. Phone has been disconnected. documented in this encounter Plan of Treatment Not on file documented as of this encounter Visit Diagnoses Not on filedocumented in this encounter Care Teams Attendance Officer Relationship Specialty Start Date End Date Debi Allred PA [address] [place] [address] [address] [place] [address] PCP - General 04/21/25 documented as of this encounter
--- NOTE | 2025-06-05 08:30 | CT_ITS ---
FINAL REPORT CLINICAL HISTORY: C50.412 - Malignant neoplasm of upper-outer quadrant of l... FINDINGS: CT GUIDED LUNG BIOPSY. HISTORY: Left lung nodule, breast cancer. ATTENDING PHYSICIAN: Dr. Sauceda. PHYSICIAN DICTATING TRANSCRIBING MACHINE SERVICER: Mary Jones PA-C. PROCEDURE: After informed consent was obtained and a time-out was performed, the patient was prepped and draped in usual sterile fashion over the left axillary region. Utilizing local anesthesia and sterile technique with a coaxial system, access to left upper lung lesion was obtained. Three 22-gauge FNA passes were made. Post biopsy films demonstrate a small left pneumothorax. This was followed with serial chest x-rays. CONSCIOUS SEDATION: 3 mg of IV Versed and 50 mcg of Fentanyl were administered. Continuous vital sign monitoring was used. An RN was present during the sedation process. Overall sedation time was 40 minutes. The patient tolerated procedure well and left the department in good condition. IMPRESSION: Status post CT guided biopsy of a left lung nodule with small post biopsy pneumothorax. Images reviewed, interpreted, and dictated by Dr. Alec Sauceda. Transcribed by Mary Jones PA-C. Reviewed, Interpreted and Dictated by Sigrid Sauceda MD Transcribed by Mary Jones PA-C Authenticated and [facility]
[2025-06-05 09:05] LABS: INR 1.05 (0.9-1.1); Prothrombin Time 11.6 seconds (10.1-12.5)
[2025-06-05] MEDS: LACTATED RINGERS 1000ML 1,000 ML 50 ML IV (09:24)
--- NOTE | 2025-06-05 10:09 | XR_ITS ---
FINAL REPORT CLINICAL HISTORY: CT BIOPSY, post ct lung biopsy, left lung FINDINGS: PA and lateral views of the chest were obtained. There is no prior exam for comparison. Patient is status post lung biopsy. Heart is mildly enlarged. There is a hiatal hernia. There may be a very tiny, left apical pneumothorax following biopsy. Peripheral airspace opacity likely represents biopsied abnormality. There is no pleural effusion. IMPRESSION: Possible very tiny left apical pneumothorax. Reviewed, Interpreted and Dictated by Elva Bronson MD Transcribed by Aria Parham Authenticated and [facility]
--- NOTE | 2025-06-05 13:00 | XR_ITS ---
FINAL REPORT CLINICAL HISTORY: CT LEFT LUNG BIOPSY, 2HRS POST FINDINGS: 2 views of the chest were obtained and compared to exam performed earlier today. Heart size is stable. There has been interval increase in size and left apical pneumothorax now measuring 10 mm of pleural separation. There has been no other significant interval change. IMPRESSION: Increase in size and left apical pneumothorax now with 10 mm of pleural separation. Reviewed, Interpreted and Dictated by Elva Bronson MD Transcribed by Aria Parham Authenticated and [facility]
--- NOTE | 2025-06-05 13:41 | PC.NURSE ---
Per Elly Mercado RN- spoke to KAM Scanlon in radiology. PT Pneumo shows growth. Remain NPO and repeat xray in 2hrs.
--- NOTE | 2025-06-05 15:00 | XR_ITS ---
FINAL REPORT CLINICAL HISTORY: 4HR POST LEFT LUNG BIOPSY COMPARISON: 2 hours prior FINDINGS: PA and lateral views of the chest were obtained. The heart is stable in size. There has been no change of the left mid lung opacity. Left apical pneumothorax is not changed. There continue to be small bilateral pleural effusions. No new abnormality. No pneumothorax. No acute osseous abnormality is identified. IMPRESSION: No significant change. Reviewed, Interpreted and Dictated by Elva Bronson MD Transcribed by Shasta Che Authenticated and [facility]
--- NOTE | 2025-06-05 15:16 | PC.NURSE ---
1500: Taken to xray via wheelchair per this RN and Aziza Lester RN.
--- NOTE | 2025-06-05 15:41 | PC.NURSE ---
1536: Call recieved from Tawanda (radiology PA) saying that Dr. Sauceda had looked over the newest chest xray in comparison to the last one shot at 1300. She stated that the pnuemothorax was stable and pt could be d/c home if vital signs were stable and no pain was reported by pt. Will continue with discharge.
== END 2025-06-05 15:42 | disposition home or self-care (01) ==
LOC: RAD 07:20
PROVIDERS: PCP Physician Assistant; Visit Provider Internal Medicine Medical Oncology
DX: C50.412 Malignant neoplasm of upper-outer quadrant of left female breast (principal); J98.4 Other disorders of lung; J93.9 Pneumothorax, unspecified; R91.1 Solitary pulmonary nodule; Z17.0 Estrogen receptor positive status [ER+]
CPT/HCPCS: 32408; 71046; 77012; 85610; J2250; J3010; J7120